=== PATIENT | female | born 1960 | race Caucasian/White ===

== ENCOUNTER 2023-07-15 23:59 | Emergency (ER) | payer OTHER, SELFPAY ==
--- NOTE | ~2023-07-15 | XR_ITS ---
EXAMINATION: XR CHEST CLINICAL INFORMATION: Shortness of breath COMPARISON: None available. TECHNIQUE: 2 views of the chest were obtained. FINDINGS: The lungs are clear with no focal consolidation. No evidence of pneumothorax, pulmonary edema, or pleural effusions. The cardiomediastinal silhouette is unremarkable. No acute osseous findings. XR/XR chest 2V IMPRESSION: No acute cardiopulmonary findings.
--- NOTE | ~2023-07-15 | US_ITS ---
EXAMINATION: US VENOUS ULTRASOUND WITH DOPPLER LOWER EXTREMITY, BILATERAL CLINICAL INFORMATION: Lumbar extremity swelling COMPARISON: None available. TECHNIQUE: Ultrasound of the deep veins is performed from the hip to the calf with compression sonography and color and pulse Doppler assessment. Spectral analysis with color-flow imaging is performed. FINDINGS: RIGHT: There is normal venous compression and respiratory variation and augmented flow. The visualized common femoral vein, superficial femoral vein, profunda femoral vein, popliteal vein, and the trifurcation region shows no evidence of deep venous thrombosis. Subcutaneous edema noted in the calf. There is no significant popliteal fossa cyst. LEFT: There is normal venous compression and respiratory variation and augmented flow. The visualized common femoral vein, superficial femoral vein, profunda femoral vein, popliteal vein, and the trifurcation region shows no evidence of deep venous thrombosis. Thrombosis noted within a varicosity off the greater saphenous vein in the thigh. Subcutaneous edema noted in the calf. There is no significant popliteal fossa cyst. If the patient's symptoms persist, followup ultrasound in 5 days 7 days might be of value to exclude proximal propagation from a non-visualized calf vein. US/US venous duplex LE BI IMPRESSION: 1. No DVT demonstrated in the bilateral lower extremities. 2. Thrombosis of a varicosity off the left greater saphenous vein in the thigh, consistent with superficial thrombophlebitis. 3. Subcutaneous edema in the bilateral calves.
[2023-07-16 00:13] VITALS: BP 136/86; BP 139/64; PULSE 107; PULSE 115; RESP 18; TEMP 36.8; O2SAT 98; O2SAT 99; BMI 27.5
--- NOTE | 2023-07-16 00:19 | ECG_ITS ---
Test Reason : SWELLING Blood Pressure : / mmHG Vent. Rate : 101 BPM Atrial Rate : 101 BPM P-R Int : 172 ms QRS Dur : 080 ms QT Int : 362 ms P-R-T Axes : 055 076 032 degrees QTc Int : 469 ms Sinus tachycardia Otherwise normal ECG No previous ECGs available Referred By: Nesha Tolliver Electronically Signed By:BRIONNA GRANDE
--- NOTE | 2023-07-16 00:20 | ED.GENADULT ---
HPI - General Adult General Chief complaint: General Medical Stated complaint: SOB/SIDE PAIN EARLIER,RESOLVED NOW PER EMS Time Seen by Provider: 07/16/23 00:15 Source: patient and EMS Mode of arrival: EMS Limitations: no limitations History of Present Illness HPI narrative: 63 yo female with no known medical history here with complaints of bilateral LE swelling x 1 yr. Went to [facility] one week ago and had labs, CXR and ultrasound in the ER per patient. Was discharged on a cephalexin, furosemide x 7 days but no patient concerned that legs are still swollen and the right leg is weeping. No fevers, chills, shortness of breath, cough, dizziness or palpitations. Patient reports earlier today she had bilateral rib pain but this is now resolved and she denies any pain at this time. No abdominal pain, vomiting, diarrhea. No recent travel, no sick contact, no recent surgeries. No history of PE/DVT Related Data Allergies Allergy/AdvReac Type Severity Reaction Status Date / Time Unable to Assess Allergy Verified 07/16/23 00:19 Review of Systems Review of Systems: Yes all other systems are reviewed and are negative Constitutional: Constitutional: Reports no additional constitutional complaints, Denies body ache(s), Denies chills, Denies fever(s), Denies headache(s) and Denies weakness Eyes: Eyes: Reports no additional eye complaints and Denies change in vision ENT: Reports system reviewed and no additional complaints, except as documented, Denies dizziness, Denies headache(s), Denies nasal congestion, Denies nasal discharge and Denies neck pain Cardiovascular: Cardiovascular: Reports no additional cardiovascular complaints, Reports chest pain, Reports leg edema and Reports dyspnea Respiratory: Respiratory: Reports no additional respiratory complaints, Denies cough and Reports dyspnea Gastrointestinal: Gastrointestinal: Reports no additional gastrointestinal complaints, Denies abdominal pain, Denies diarrhea, Denies nausea and Denies vomiting Genitourinary: Genitourinary: Reports no additional female genitourinary complaints and Denies urinary incontinence Musculoskeletal: Musculoskeletal: Reports no additional musculoskeletal complaints, Denies back pain, Denies arthralgias, Denies joint swelling, Denies neck pain, Denies numbness and Denies tingling Integumentary/Breasts: Skin/Breast: Reports system reviewed and no additional complaints, except as docu and Denies rash Neurologic: Reports system reviewed and no additional complaints, except as documented, Denies dizziness, Denies headache(s), Denies numbness, Denies tingling and Denies weakness PMFSH Past Medical History Attestation statement: The following information was validated with the patient. Source: old records reviewed and nursing notes reviewed Social History Social History Alcohol intake: never Smoked in Last 30 Days: No Use of substances other than those prescribed or required for medical reasons: No Advance Directives: No Advance Directives Information Provided: Yes Patient : No Physical Exam ED Vital Signs: Vital Signs - 24 hr 07/16/23 00:13 Temperature 98.2 F Pulse Rate 107 H Respiratory Rate 18 Blood Pressure 139/64 Pulse Oximetry 99 Oxygen Delivery Method Room Air BMI result Body Mass Index 27.5 Const General: cooperative, healthy appearing, comfortable and no acute distress Orientation/consciousness: patient oriented x3 Limitations: no limitations HENMT Head: Yes normal to inspection Ears: hearing grossly normal bilaterally Eyes General: appearance normal, both eyes and all related structures Pupils: Equal, round and reactive pupils present Neck Neck: Yes normal visual inspection and Yes full ROM Chest Chest palpation & inspection: normal inspection of the chest Resp Effort & Inspection: normal respiratory effort Auscultation: clear to auscultation bilaterally Cardio Rate: regular rate Rhythm: regular rhythm Peripheral pulses: Peripheral pulses 2+ throughout GI Inspection: Yes normal to inspection Palpation (GI): Soft to palpation and nontender Auscultation: normal bowel sounds General: Yes no CVA tenderness Back/Spine/Pelvis Back: no CVA tenderness Thoracic/Lumbar Spine: thoracic and lumbar spine normal to inspection Skin General skin exam: no rashes or lesions noted Neuro General: patient oriented x3 and moves all extremities Cranial nerves: Yes Equal, round and reactive pupils present Cognition (Neuro): normal cognition Gait exam (Neuro): Normal gait present Extrem Other: Bilateral lower extremity swelling R>L. There is scaling to both extremities Palpable 2+ DP/PT pulses Normal distal sensation Mild TTP No warmth/redness +weeping from scaling on right lower extremity Course Course Course Narrative: 199-Sign out to Dr Simon pending labs and dispo. Medical Decision Making Medical Decision Making MDM Narrative: 63 yo female with no known medical history here with complaints of bilateral LE swelling x 1 yr. Went to [facility] one week ago and had labs, CXR and ultrasound in the ER per patient. Was discharged on a cephalexin, furosemide x 7 days but no patient concerned that legs are still swollen and the right leg is weeping. No fevers, chills, shortness of breath, cough, dizziness or palpitations. Patient reports earlier today she had bilateral rib pain but this is now resolved but denies pain at this time. No abdominal pain, vomiting, diarrhea. No recent travel, no sick contact, no recent surgeries. No history of PE/DVT On exam patient has bilateral lower extremity swelling R>L with scaling to both LE and weeping from RLE. There is mild tenderness but no appreciable warmth or redness. LS CTA Will attempt to obtain [facility] records although getting them in a reasonable time frame may not happen as it is Sunday evening Will obtain labs, CXR, venous US Differential Diagnosis Differential Diagnoses: The differential diagnosis associated with the presentation includes DVT, CHF, lymphedema PE-less likely as patient denies shortness of breath, cough, chest pain with no hypoxia or tachypnea, no risk factors for PE although consider US study in MDM low concern for cellulitis, nec fascitis, compartment syndrome Admission/Observation Consideration of admission/observation: Escalation of care including admission/observation considered see discussion in course of care Lab Data MDM Lab Attestation statement: I reviewed the patient's lab results. Independent Interpretation I performed an independent interpretation of an: EKG, Plain X-Ray and Ultrasound Interpretation: I independently reviewed the EKG which shows sinus tachycardia with a rate of 101, normal NV, normal QRS, normal QT I independently reviewed the CXR and agree with rad report Radiology Impression Discussion of test interpretation with radiology: I have reviewed the radiologist's reading. Radiologist Impression: [address] [address] XRay Report Signed Patient: Brigida Yao MR#: [id number] : 1960 Acct:[id number] Age/Sex: 63 / F ADM Date: 07/16/23 Loc: .ED Attending Dr: Ordering Physician: Nesha Jennings NP Date of Service: 07/16/23 Procedure(s): XR chest 2V Accession Number(s): [id number] cc: Dick,Nesha [employer]~ EXAMINATION: XR CHEST CLINICAL INFORMATION: Shortness of breath COMPARISON: None available. TECHNIQUE: 2 views of the chest were obtained. FINDINGS: The lungs are clear with no focal consolidation. No evidence of pneumothorax, pulmonary edema, or pleural effusions. The cardiomediastinal silhouette is unremarkable. No acute osseous findings. XR/XR chest 2V IMPRESSION: No acute cardiopulmonary findings. ? Independent Historian Clinical information obtained from an independent historian. History obtained from or confirmed by: EMS Discharge Plan Discharge Clinical Impression: Leg swelling Patient Disposition: Home, Self-Care Instructions: Leg Edema (ED) Additional Instructions: Elevate your leg Buy compression stocking and please use these Follow-up with her primary care doctor Return for shortness of breath, chest pain, fevers, chills, vomiting, diarrhea
--- NOTE | 2023-07-16 01:10 | PC.NURSE ---
Blood work and EKG delayed due to pt being with radiology.
[2023-07-16 01:55] LABS: MANUAL DIFF FLAG NO
[2023-07-16 01:58] LABS: Basophils Percent Auto 0.3 % (0-2); Eosinophils Percent Auto 0.1 % (0-4); Hematocrit 35.8 % (37.0-47.0); Hemoglobin 10.8 g/dl (12.0-16.0); Imm Gran Abs Auto 0.07 X10*3/uL (0.00-0.03); Imm Gran Pct Auto 0.6 % (0.0-0.4); Lymphocytes Absolute Auto 0.6 X10*3/uL (1.2-4.9); Lymphocytes Percent Auto 5.5 % (20-40); Mean Corpuscular HGB Conc 30.2 g/dl (31.0-35.0); Mean Corpuscular Hemoglobin 24.4 pg (27.0-33.0); Mean Corpuscular Volume 80.8 fL (80.0-98.0); Mean Platelet Volume 9.7 fL (9.4-12.3); Monocytes Absolute Auto 0.6 X10*3/uL (0.1-1.2); Monocytes Percent Auto 5.2 % (2-11); Neutrophils Absolute Auto 10.1 x10*3/uL (2.0-8.3); Neutrophils Percent Auto 88.3 % (45-73); Platelet Count 362 X10*3/uL (160-400); Red Blood Count 4.43 X10*6/uL (4.20-5.50); Red Cell Distribution Width 15.1 % (11.0-16.0); White Blood Count 11.4 X10*3/uL (4.8-10.8)
[2023-07-16 02:16] LABS: Alanine Aminotransferase 56 U/L (0-31); Albumin Level 2.8 g/dL (3.5-5.0); Alkaline Phosphatase 419 U/L (39-117); Anion Gap 14 (12-20); Aspartate Amino Transferase 303 U/L (5-31); Bilirubin Direct 0.7 mg/dL (0.0-0.5); Blood Urea Nitrogen 14 mg/dL (9-16); Calcium 9.1 mg/dL (8.4-10.2); Carbon Dioxide 31 mmol/L (22-29); Chloride 93 mmol/L (96-108); Creatinine Clr Calc Pharmacy 81.9; Estimated Glomerular Filt Rate > 60; Glucose Random 159 mg/dL (60-115); Magnesium 2.1 mg/dL (1.6-2.6); Potassium 3.7 mmol/L (3.3-5.1); Sodium 134 mmol/L (135-145); Total Protein 8.2 g/dL (6.5-8.0)
[2023-07-16 02:17] LABS: INTERNATIONAL NORM RATIO 1.2 (0.9-1.1); Prothrombin Time 14.5 SEC (11.1-13.3)
[2023-07-16 02:19] LABS: B Type Natriuretic Peptide 15 pg/mL (<100)
[2023-07-16 02:26] LABS: Troponin-I High Sensitivity < 2.7 ng/L (<3.5-17.0)
[2023-07-16] MEDS: Apixaban 5 MG TABLET 10 MG PO (03:18)
== END 2023-07-16 03:28 | disposition home or self-care (01) ==
PROVIDERS: Nurse Practitioner Family; Emergency Provider Emergency Medicine; PCP Physician Assistant
DX: R06.02 Shortness of breath (principal); R60.0 Localized edema; R00.0 Tachycardia, unspecified; Z79.899 Other long term (current) drug therapy
CPT/HCPCS: 36415; 71046; 80048; 80076; 83605; 83735; 83880; 84484; 85025; 85610; 87040; 93005; 93970; 99284

== ENCOUNTER 2023-07-19 09:08 | Outpatient (AMB) | payer OTHER, SELFPAY ==
--- NOTE | 2023-07-19 09:29 | MHC.OFFVIS ---
Intake Vital Signs 07/19/23 09:30 Height 5 ft 5 in Weight 165 lb BMI 27.5 Intake Visit Reasons: ED ref for LE swelling s/p ultrasound Intake Note: ED referral for LE swelling, s/p Venous US bilateral LE 07/16/23 that showed thrombosis of Left GSV. Had gone to [facility] the week begore and was given Abx & Lasix for LE swelling and redness in LE. Has bilateral LE swelling and lymphorrea and discoloration and hyperkaratosis Accompanied by: Spouse Allergies Unable to Assess Allergy (Verified 07/19/23 09:49) HPI ED ref for LE swelling s/p ultrasound HPI Details very complex 63-year-old female presents for evaluation for swelling and nonhealing ulcers of bilateral lower extremities. This has been progressing for significant period of time she actually presented to the emergency room on 07/16/2023. At that time there was concern left great saphenous vein superficial thrombophlebitis. She was treated at that time with Eliquis and cephalexin. Her leg appears to be doing somewhat better but she has significant edema concerning for lymphedema. She has dry excoriated lower extremities which have been weeping. She tends to have so much drainage that she is in a chair all day. She falls asleep sitting on a couch. She now presents for vascular evaluation. Also of note she reports she is a nonsmoker nondiabetic. That being said she has not seen a primary care physician in over 15 years. [facility] Social History (Updated 07/19/23 @ 09:52 by ERICK Gomez) Alcohol intake: never Patient Tobacco Use Status: Never used Tobacco Review of Systems Const Reports as per HPI ENT Reports no additional complaints Card Denies chest pain, Denies chest pain at rest and Denies chest pain with activity Resp Denies chest congestion and Denies cough GI Reports no additional complaints Musc Details: pain over varicosities, aching of lower extremities, swelling, cramping, heaviness and tiredness, itching Denies abnormal gait Skin/Breast Reports pruritus and Denies wounds Neuro Reports no additional complaints and Denies abnormal gait Psych Denies no additional complaints Physical Exam Vital Signs: BMI result Body Mass Index 27.5 Const General: cooperative, healthy appearing and comfortable Orientation/consciousness: oriented to person, oriented to place and oriented to time Neck Carotids: no bruits Chest Chest palpation & inspection: normal inspection of the chest and normal palpation of entire chest wall Resp Effort & Inspection: normal respiratory effort and able to speak in complete sentences Cardio Rate: regular rate Heart sounds: S1 normal heart sound present and S2 normal heart sound present Peripheral pulses: Peripheral pulses 2+ throughout GI Inspection: Yes normal to inspection Skin Other: +3 edema, significantly excoriated dry skin open ulcerations serous drainage. CEAP Classification C6 - Open ulceration Ep - Etiology Primary As - superficial veins P - reflux General skin exam: dry skin Neuro General: oriented to person, oriented to place and oriented to time Extrem Right lower extremity: full ROM, normal capillary refill and edema Left lower extremity: full ROM, normal capillary refill and edema Psych Mental Status: mental status grossly normal Assessment & Plan Assessment & Plan (1) Varicose veins of right lower extremity with inflammation: Code(s): I83.11 - Varicose veins of right lower extremity with inflammation Plan: in short patient has significantly swollen lower extremities with nonhealing ulcerations. We did discuss routine wound care measures including moisturization. In addition to Vick wraps of the calf and ankle area. We also did discuss conservative measures including compression elevation and exercise. I did discuss the importance of sleeping in a horizontal position. And trying to cover up the self us so that there is a place for her to sleep. I have taken the liberty of ordering venous insufficiency testing to rule that out. In addition I did stress the importance of primary care evaluation of basic diabetes and heart condition. She was scheduled for August but we personally call than expedited an appointment for tomorrow. She is scheduled with [facility] for tomorrow. Once again she will follow up with us after venous insufficiency testing. She will finish her 30 day supply of Eliquis. She does not need additional anticoagulation. (2) Lymphedema: Code(s): I89.0 - Lymphedema, not elsewhere classified Plan: In addition to her venous insufficiency I do believe she has a significant element of lymphedema. We will workup venous disease 1st. At the current time I did recommend daily Vick wraps and moisturizing lower extremities twice daily. We will try to expedite venous insufficiency testing as soon as possible. She will follow up with us after testing. I also do hope that she does follow-up with primary care as well. Thank you for allowing us to assist in her care. If there are any questions or concerns please do not hesitate to contact us. Coding Level of Care Code New Pt Level 4 (98169) Diagnoses Varicose veins of right lower extremity with inflammation I83.11 Lymphedema I89.0
[2023-07-19 09:30] VITALS: BMI 27.5
== END 2023-07-19 10:21 | disposition home or self-care (01) ==
PROVIDERS: PCP Physician Assistant; Visit Provider Surgery Vascular Surgery
DX: I83.11 Varicose veins of right lower extremity with inflammation (principal); I89.0 Lymphedema, not elsewhere classified
CPT/HCPCS: 99204

== ENCOUNTER → 2023-07-19 09:08 | Outpatient (BNVA) | payer OTHER, SELFPAY | PROVIDERS: PCP Physician Assistant; Visit Provider Surgery Vascular Surgery ==

== ENCOUNTER 2023-07-20 14:32 | Outpatient (AMB) | payer OTHER, SELFPAY ==
--- NOTE | 2023-07-20 14:33 | A.OFFPC_ITS ---
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 Last PCP about 15 years ago. Medical history significant for varicose veins of right lower extremity with inflammation and lymphedema-followed by Dr. Corea- patient reports she will be having bilateral lower extremity ultrasounds. Patient was seen in the [facility] recently 06/2023 and she had blood work done which shows low hemoglobin and elevated LFTs. She denies any bleeding. Denies Tylenol or alcohol consumption. Patient also reports she has right leg ulcer, will be doing dressing changes daily. Today we discussed patient's need for colon cancer screening, patient declined colonoscopy, she is interested in Cologuard. Also discussed patient's need for mammogram and cervical cancer screening as well as eye exam. Patient is also due for tetanus vaccine. 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 Patient denies shortness of breath or chest pain. Up-to-date with dental exam. [facility] Medical History Varicose vein of leg Family History Mother Dementia Father Lung cancer Social History Alcohol intake: never Patient Tobacco Use Status: Never used Tobacco service: No Current occupational status: employed Cognitive needs: No Hearing needs: No Vision needs: No Questionnaire PHQ-9 Over the last 2 weeks, how often have you been bothered by any of the following problems? 1. Little interest or pleasure in doing things: not at all 2. Feeling down, depressed, or hopeless: not at all 3. Trouble falling or staying asleep, or sleeping too much: not at all 4. Feeling tired or having little energy: not at all 5. Poor appetite or overeating: not at all 6. Feeling bad about yourself - or that you are a failure or have let yourself or your family down: not at all 7. Trouble concentrating on things, such as reading the newspaper or watching television: not at all 8. Moving or speaking so slowly that other people could have noticed. Or the opposite - being so fidgety or restless that you have been moving around a lot more than usual: not at all 9. Thoughts that you would be better off or of hurting yourself in some way: not at all Total score: 0 Depression Screening Interpretation: Negative 50843 - PHQ-9 Billing: Yes Source: Developed by Drs. Jona Del Valle, Macie Frias, Christopher Harper and colleagues, with an educational phuong from [employer]. Thrive Questionnaire Date Thrive assessed: 07/20/23 I am a: Patient What is your living situation today?: I have a steady place to live Within the past 12 months, did the food you bought not last and you didn't have the money to get more?: Never true Within the past 12 months, did you worry whether your food would run out before you got money to buy more?: Never true Do you have trouble paying for medicines?: No Do you have trouble getting transportation to medical appointments?: No Do you have trouble paying your heating and electricity bill?: No Do you have trouble taking care of your child, family member or friend?: No Do you have trouble with day-to-day activities such as bathing, preparing meals, shopping, managing finances, etc.?: No Are you currently unemployed and looking for a job?: No Are you interested in more education?: No Currently or been in a relationship where the following occur: no concerns reported AUDIT C Alcohol Use Questionnaire (AUDIT-C) 1. How often do you have a drink containing alcohol?: Never 3. How often do you have six or more drinks on one occasion?: Never Total Score: 0 Score Reviewed/Action Taken: No YIFAN-7 AMB Questionnaire YIFAN-7 Date YIFAN - 7 assessed: 07/20/23 Feeling nervous, anxious, or on edge: 0 = Not at all Not being able to stop or control worryin = Not at all Worrying too much about different things: 0 = Not at all Trouble relaxin = Not at all Being so restless that it is hard to sit still: 0 = Not at all Becoming easily annoyed or irritable: 0 = Not at all Feeling afraid as if something awful might happen: 0 = Not at all Total YIFAN-7 score (0-4 normal; 5-9 mild; 10-14 moderate; 15-21 severe): 0 Source: Developed by Drs. Jona Del Valle, Macie Frias, Christopher Harper and colleagues, with an educational phuong from [employer]. YIFAN-7 Assessment Billing YIFAN-7 Assessment Tool: YIFAN-7 Assessment 43687 Review of Systems Const Denies body aches, Denies chills, Denies fever(s) and Denies headache(s) Eyes Denies change in vision ENT Denies dizziness, Denies otalgia, Denies headache(s), Denies nasal discharge, Denies sinus pain and Denies sore throat Card Denies chest pain, Denies edema, Reports leg edema, Denies lightheadedness and Denies dyspnea Resp Denies cough, Denies dyspnea and Denies wheezing GI Denies abdominal pain, Denies constipation, Denies diarrhea, Denies nausea and Denies vomiting Denies dysuria Musc Denies myalgias Skin/Breast Reports as per HPI and Denies rash Neuro Denies dizziness and Denies headache(s) Aller/Immun Denies wheezing Physical exam (Primary Care) Vital Signs: Last Vital Signs Pulse 110 H 07/20/23 15:22 BP 142/80 H 07/20/23 14:35 Pulse Ox 96 07/20/23 14:35 Oxygen Delivery Method Room Air 07/20/23 14:35 BMI result Body Mass Index 30.6 Tobacco/Smoking Status: Tobacco use Status Tobacco use date assessed 07/20/23 07/20/23 14:37 Patient Tobacco Use Status Never used Tobacco 07/20/23 14:35 PHQ-9: PHQ-9 Score PHQ-9: Total score 0 07/20/23 15:24 Depression Screening Interpretation: Negative Thrive Assessment: Date of Thrive Assessment Date Thrive assessed 07/20/23 07/20/23 14:37 Currently or been in a relationship where the following occur: no concerns reported Const General: cooperative and no acute distress Orientation/consciousness: patient oriented x3 HENMT Head: Yes normocephalic and Yes atraumatic Ears: TM's normal bilaterally Face and sinus: Yes sinuses nontender Mouth: oropharynx normal and moist mucous membranes Throat: Yes posterior oropharynx normal Eyes General: appearance normal, both eyes and all related structures Pupils: Equal, round and reactive pupils present EOM: EOMs intact bilaterally Neck Neck: Yes normal visual inspection, Yes full ROM and Yes no lymphadenopathy Thyroid: Thyroid normal Resp Effort & Inspection: normal respiratory effort and able to speak in complete sentences Auscultation: clear to auscultation bilaterally, no crackles, no rales, no rhonchi and no wheezes Cardio Rate: regular rate Rhythm: regular rhythm Heart sounds: S1 normal heart sound present, S2 normal heart sound present and no murmurs GI Palpation (GI): Soft to palpation, not firm, nontender, no guarding, not rigid and no hepatosplenomegaly Auscultation: normal bowel sounds General: No CVA tenderness Back/Spine/Pelvis Back: No CVA tenderness Skin Other: Right distal posterior leg with open ulcer and serous discharge, patient has dressing and Vick wrap Bilateral toenails brown and thick Bilateral lower extremities distal aspect with very dry skin - reports he will be applying moisturizing cream Neuro General: patient oriented x3 Cranial nerves: Yes Equal, round and reactive pupils present Gait exam (Neuro): Normal gait present Extrem Other: Bilateral lower extremity edema +2 nonpitting R>L General: Yes full ROM Immunizations Boostrix Tdap Performing Provider: THIERNO Gamez Administered by: ERICK Johnson on 07/20/23 15:24 Dose Route Admin Location Lot Number Expiration Date 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 0.5 mL IM Left Deltoid [id number] 10/24/25 [id number] [employer] VIS Given Date VIS Provided VIS Publication Date 07/20/23 Single Vaccine 21 Eligibility Eligibility Date Funding Source Not [facility] Eligible 07/20/23 Private Assessment and Plan Assessment & Plan (1) Skin ulcer of right lower leg: Code(s): L97.919 - Non-pressure chronic ulcer of unspecified part of right lower leg with unspecified severity Plan: Urgent referral to wound care (2) Toenail fungus: Code(s): B35.1 - Tinea unguium Plan: Podiatry referral for an evaluation and treatment (3) Tachycardia: Code(s): R00.0 - Tachycardia, unspecified Plan: Heart rate elevated at 110 Patient denies shortness of breath or chest pain Will order echocardiogram - also patient with bilateral lower extremity edema - has lymphedema and followed by Dr. Corea (4) Eye exam, routine: Code(s): Z01.00 - Encounter for examination of eyes and vision without abnormal findings (5) Screening for breast cancer: Code(s): Z12.39 - Encounter for other screening for malignant neoplasm of breast (6) Cervical cancer screening: Code(s): Z12.4 - Encounter for screening for malignant neoplasm of cervix (7) Low hemoglobin: Code(s): D64.9 - Anemia, unspecified Plan: Hemoglobin 10.8 06/2023 Will check iron level (8) Elevated glucose: Code(s): R73.09 - Other abnormal glucose Plan: Random glucose 159 06/2023 Will check A1c (9) Elevated LFTs: Code(s): R79.89 - Other specified abnormal findings of blood chemistry Plan: AST 303, ALT 56, alk-phos 419 06/2023 Hepatitis panel and abdominal ultrasound ordered Patient denies Tylenol or alcohol consumption (10) Encounter to establish care: Code(s): Z76.89 - Persons encountering health services in other specified circumstances Plan: Patient presents to establish care Blood work ordered (11) Lymphedema: Code(s): I89.0 - Lymphedema, not elsewhere classified Plan: Continue to follow-up with Dr. Corea (12) Screening for colon cancer: Code(s): Z12.11 - Encounter for screening for malignant neoplasm of colon Plan Follow-up in 2 months or sooner as needed Orders: Orders Vitamin B12 and Folate Today Z76.89 - Persons encountering health services in other specified circumstances Hemoglobin A1c Today R73.09 - Other abnormal glucose Lipid Panel Today Z76.89 - Persons encountering health services in other specified circumstances TSH reflex Free T4 Today Z76. - Persons encountering health services in other specified circumstances Vitamin D 25-OH Total Today Z76. - Persons encountering health services in other specified circumstances Hepatitis A,B,C Profile Today R79.89 - Other specified abnormal findings of blood chemistry IRON PROFILE Today D64.9 - Anemia, unspecified US abdomen complete Today R79. - Other specified abnormal findings of blood chemistry MM tomosynthesis screening BI Today Z12.31 - Encounter for screening mammogram for malignant neoplasm of breast, Z12.39 - Encounter for other screening for malignant neoplasm of breast CA echo transthoracic complete Today R00.0 - Tachycardia, unspecified TDaP Immunization Today Z23 - Encounter for immunization Referrals Cologuard Test Z12.11 - Encounter for screening for malignant neoplasm of colon, Z12.12 - Encounter for screening for malignant neoplasm of rectum AUT[employer]TER Referral Z12.4 - Encounter for screening for malignant neoplasm of cervix Ophthalmology Referral Z01.00 - Encounter for examination of eyes and vision without abnormal findings Podiatry Referral B35.1 - Tinea unguium Wound Care Referral L97.919 - Non-pressure chronic ulcer of unspecified part of right lower leg with unspecified severity Coding Level of Care Code New Pt Level 4 (80234) Diagnoses Skin ulcer of right lower leg L97.919 Toenail fungus B35.1 Tachycardia R00.0 Eye exam, routine Z01.00 Screening for breast cancer Z12.39 Cervical cancer screening Z12.4 Low hemoglobin D64.9 Elevated glucose R73.09 Elevated LFTs R79.89 Encounter to establish care Z76. Lymphedema I89.0 Screening for colon cancer Z12.11 Additional Codes YIFAN-7 Assessment Billing - YIFAN-7 Assessment Tool: YIFAN-7 Assessment 10068 ([id number])
[2023-07-20 14:35] VITALS: BP 142/80; PULSE 112; O2SAT 96; BMI 30.6
[2023-07-20 15:22] VITALS: PULSE 110
== END 2023-07-20 15:46 | disposition home or self-care (01) ==
PROVIDERS: PCP Physician Assistant; Visit Provider Nurse Practitioner Family
DX: Z23 Encounter for immunization (principal)
CPT/HCPCS: 90471; 90715; 99204

== ENCOUNTER 2023-08-09 09:55 | Outpatient (REF) | payer OTHER, SELFPAY ==
--- NOTE | ~2023-08-09 | US_ITS ---
EXAMINATION: US VENOUS BILATERAL LOWER EXTREMITIES (REFLUX EXAM) CLINICAL INDICATION: Leg pain and varicose veins. COMPARISON: None available. TECHNIQUE: Color flow triplex imaging and compression Doppler was performed to evaluate both the deep and the superficial systems bilaterally. To evaluate the superficial system, the examination was performed in the upright position. Color-flow Doppler ultrasound and compression ultrasound were utilized. In addition, maneuvers were utilized to demonstrate reflux. FINDINGS: 1. DEEP VENOUS ULTRASOUND OF THE RIGHT LOWER EXTREMITY: Respiratory variation, normal compression and augmented flow are noted in the right common femoral vein as well as the right popliteal vein and there is no evidence of deep venous thrombosis at these locations. There is no evidence of reflux in the deep system in either the common femoral vein or the popliteal vein. There is no evidence of a Beltran's cyst. 2. SUPERFICIAL ULTRASOUND WITH DOPPLER OF RIGHT LOWER EXTREMITY: The right great saphenous vein at the saphenofemoral junction measures 6 mm, at the proximal thigh 6 mm, at the mid thigh 5 mm, above the knee 3 mm, at the knee 2 mm, [id number] 3 mm, midcalf 3 mm and at the ankle not seen. There is 0.9 seconds of reflux present at the saphenofemoral junction. Duplicated Right Great Saphenous Vein: There is an 8mm lateral accessory saphenous that demonstrates reflux throughout its course with reflux times as high as 1.1 seconds. The right small saphenous vein measures 2 mm and shows no reflux. Accessory Vein of Giacomini: None. Incompetent Perforators: None. Varices Present: Yes as large as 7 mm with reflux. 3. DEEP VENOUS ULTRASOUND OF THE LEFT LOWER EXTREMITY: Respiratory variation, normal compression and augmented flow are noted in the left common femoral vein as well as the left popliteal vein and there is no evidence of deep venous thrombosis at these locations. There is no evidence of reflux in the deep system in either the common femoral vein or the popliteal vein. There is no evidence of a Beltran's cyst. 4. SUPERFICIAL ULTRASOUND WITH DOPPLER OF LEFT LOWER EXTREMITY: Left great saphenous vein at the saphenofemoral junction measures 9 mm, at the proximal thigh 5 mm, at the mid thigh 4 mm, above the knee 6 mm, at the knee 6 mm, cukgg-fol-ttay 8 mm, midcalf 5 mm and at the ankle measures 4 mm. Gross reflux is present throughout the left great saphenous vein with reflux times as high as 1.8 seconds. Duplicated Left Great Saphenous Vein: None. The left small saphenous vein measures 5 mm and 0.8 seconds of reflux from the junction downward. Accessory Vein of Giacomini: None. Incompetent Perforators: None. Varices Present: Multiple varices in the thigh and proximal calf up to 7 mm in size with 2.1 seconds of reflux. US/US venous duplex LE BI IMPRESSION: No evidence of deep venous reflux or thrombus in the common femoral veins or popliteal veins bilaterally. Both great saphenous veins as well as the left small saphenous vein are incompetent as described above.
== END 2023-08-09 09:56 | disposition home or self-care (01) ==
LOC: HO.US 09:55
PROVIDERS: PCP Nurse Practitioner Family; Visit Provider Surgery Vascular Surgery
DX: I83.11 Varicose veins of right lower extremity with inflammation (principal); I83.812 Varicose veins of left lower extremity with pain
CPT/HCPCS: 93970

== ENCOUNTER 2023-08-13 10:06 | Outpatient (REF) | payer OTHER, SELFPAY ==
--- NOTE | ~2023-08-13 | US_ITS ---
EXAMINATION: US ABDOMEN COMPLETE CLINICAL INFORMATION: Other specified abnormal findings of blood chemistry. Elevated LFTs. COMPARISON: None available. TECHNIQUE: Real-time imaging of the abdominal viscera. FINDINGS: PANCREAS: Normal. ABDOMINAL AORTA: The proximal, mid, and distal segments are normal in caliber. INFERIOR VENA CAVA: Visualized portions are normal. LIVER: The liver is normal in size. The liver contour is normal. 3.6 x 2.9 x 2.0 cm hyperechoic focus is identified in the right hepatic lobe. There is no intrahepatic biliary duct dilatation seen. GALLBLADDER: Layering sludge.. No evidence of stones, polyps, wall thickening or pericholecystic fluid. COMMON BILE DUCT: Normal in caliber measuring 0.7 cm in diameter. RIGHT KIDNEY: Normal. No hydronephrosis. No renal calculi or focal parenchymal lesions. The kidney measures 13.2 cm in maximum dimension. LEFT KIDNEY: Normal. No hydronephrosis. No renal calculi or focal parenchymal lesions. The kidney measures 12.4 cm in maximum dimension. SPLEEN: Spleen is enlarged at 14.5 cm. Prominent perisplenic vessels. FREE FLUID: None. US/US abdomen complete IMPRESSION: 3.6 cm right hepatic hyperechoic focus, question hemangioma versus focal fatty deposition. Gallbladder sludge and borderline common bile duct. Splenomegaly. Question perisplenic varices.
== END 2023-08-13 10:07 | disposition home or self-care (01) ==
LOC: HO.HMGCX 10:06
PROVIDERS: PCP Nurse Practitioner Family; Visit Provider Nurse Practitioner Family
DX: R79.89 Other specified abnormal findings of blood chemistry (principal)
CPT/HCPCS: 76700

== ENCOUNTER → 2023-08-20 14:24 | Outpatient (REF) | payer OTHER, SELFPAY ==
--- NOTE | 2023-08-20 14:27 | CA_ITS ---
Transthoracic Echocardiogram Patient (Last, First, Middle): Brigida Yao, Gender: Female Date of : 1960 Age: 63 Procedure Date: 08/20/2023 Procedure Type: Transthoracic Echocardiogram Location: OP Height: 165.1 cm Weight: 81.65 kg BSA: 1.89 m2 Heart Rate: bpm BP: 126 / 80 mmHg Freight Tallier: JESUS/HEATH Referring MD: Kelle PA Symptoms: R00.0 - Tachycardia, unspecified Study Quality: Fair ECG Rhythm: Sinus Conclusions: - The left ventricular systolic function is normal. The calculated ejection fraction is 60% by biplane method. - The basal inferior and basal inferolateral segments are hypokinetic. - No obvious valvular pathology seen on this study. Findings Left Ventricle Normal left ventricular cavity size. There is mildly increased left ventricular wall thickness. The left ventricular systolic function is normal. The calculated ejection fraction is 60% by biplane method. There is no evidence of regional wall motion abnormalities. Evidence suggests grade I (mild) diastolic dysfunction. Wall Motion Rest Echo Findings The basal inferior and basal inferolateral segments are hypokinetic. Right Ventricle Normal right ventricular cavity size and systolic function. Atria Both atria are normal in size. Aortic Valve There is a normal trileaflet aortic valve. There is no aortic valve stenosis. There is no aortic valve regurgitation. Mitral Valve The mitral valve appears normal. There is no mitral valve regurgitation. There is no mitral valve stenosis. Pulmonic Valve The pulmonic valve is likely normal. Tricuspid Valve There is trace tricuspid valve regurgitation. There is no evidence of pulmonary hypertension. Great Vessels The asc aorta is normal in size. Venous The inferior vena cava is normal in size and collapses greater than 50% with inspiration. Pericardium/Pleural There is no evidence of pericardial effusion. Prior Study Comparison No prior study available for comparison. Recommendations, Care & Conclusions No obvious valvular pathology seen on this study. Measurements 2D Linear Measurements IVSd: 1.11 0.6-0.9/0.6-1.0 cm LVIDd: 3.93 3.9-5.3/4.2-5.9 cm LVIDd Index: 2.08 2.4-3.2/2.2-3.1 cm/m2 LVIDs: 2.73 2.0-3.6 cm LVPWd: 1.10 0.7-1.1 cm Ao Root: 3.40 2.1-3.5 cm LA Diam: 3.40 2.7-3.8/3.0-4.0 cm LAIDs Index: 1.80 1.5-2.3 cm/m2 LV Mass: 177.61 67-162/88-224 g LV Mass Index: 93.97 43-95/49-115 g/m2 LVOT Diam: 2.40 3.0+(-)1.3 cm 2D Systolic Function EF 4C: 59.60 >55% EF 2C: 56.00 >55% EF BiP: 60.00 >55% Mitral Valve MV Pk E: 0.97 MV PK A: 1.29 MV Decel Time: 46.00 E/A: 0.80 E'Lateral: 7.51 E'Medial: 6.42 E/E' Med: 15.10 E/E' Lat: 12.90 PHT: 13.00 MVA PHT: 16.92 Decel Pershing: 21.22 Aortic Valve AoV Pk Jamari: 1.26 AoV Mn Jamari: 0.86 AoV VTI: 0.30 AoV Pk Grad: 6.00 Aov Mn Grad: 3.00 ДМИТРИЙ Cont.VTI: 3.63 LVOT LVOT Pk Jamari: 1.02 LVOT Mn Jamari: 0.67 LVOT VTI: 0.24 LVOT Pk Grad: 4.00 LVOT Mn Grad: 2.00 LVOT Diam: 2.40 LVOT Area: 4.52 Diastolic Function MV Pk E: 0.97 MV Pk A: 1.29 E/A: 0.80 E'Medial: 6.42 E/E' Med: 15.10 E' Laterial: 7.51 E/E' Lat: 12.90 Right Ventricle TAPSE (mm): 26.00 TVS' Jamari: 13.00 Tricuspid Valve TR Pk Jamari: 1.75 TR Pk Grad: 12.00 RA Press: 3.00 RVSP: 15.00 Great Vessels Aorta Ao Root-2D: 3.40 2.0-3.7 cm Ao Asc: 3.70 2.1-3.4 cm Pulmonary Valve PV Pk Jamari: 1.02 Peak PV Grad: 4.00 Updated in Other Vendor System with Status of Final Yinka Lazar MD electronically signed on 08/20/2023 4:09:37 PM with status of Final
== END ==
LOC: HO.CARD 14:24
PROVIDERS: PCP Nurse Practitioner Family; Visit Provider Nurse Practitioner Family
DX: R00.0 Tachycardia, unspecified (principal)
CPT/HCPCS: 93306

== ENCOUNTER → 2023-08-20 14:27 | Outpatient (BNV) | payer OTHER, SELFPAY | PROVIDERS: PCP Nurse Practitioner Family; Visit Provider Internal Medicine | DX: R00.0 Tachycardia, unspecified (principal); I51.9 Heart disease, unspecified | CPT/HCPCS: 93306 ==

== ENCOUNTER 2023-08-22 08:45 | Outpatient (RCR) | payer OTHER, SELFPAY | END 2023-09-26 14:39 | disposition home or self-care (01) | LOC: HO.WCC 08:45 | PROVIDERS: PCP Nurse Practitioner Family; Visit Provider Surgery | DX: I87.333 Chronic venous hypertension (idiopathic) with ulcer and inflammation of bilateral lower extremity (principal); L97.822 Non-pressure chronic ulcer of other part of left lower leg with fat layer exposed; Q82.0 Hereditary lymphedema | CPT/HCPCS: 11042; 97597; 97598; 99212; 99213 ==

== ENCOUNTER 2023-09-05 09:00 | Outpatient (REF) | payer OTHER, SELFPAY ==
[2023-09-05 10:30] LABS: Estimated Average Glucose 94 mg/dL; Hemoglobin A1c % 4.9 % (<6.0)
[2023-09-05 10:58] LABS: Cholesterol 196 mg/dL (<200); HDL Cholesterol 44 mg/dL (>40); Iron 47 mcg/dL (30-160); LDL Cholesterol Calculated 124 mg/dL (<100); Percent Iron Saturation 18 % (15-50); Total Iron Binding Capacity 264 mcg/dL (228-428); Triglycerides 144 mg/dL (<150); Unsaturated Iron Binding 217 ug/dL
[2023-09-05 11:11] LABS: HBS Num1 0.31 mIU/mL (0-7.99); HBc Num1 0.08 S/CO (0.00-0.79); Hepatitis A Antibody IgM 0.17 Index (0-0.79); Hepatitis B Core Antibody Nonreactive (Nonreactive); Hepatitis B Surface Antigen Negative (Negative); ~HepC Num1 0.11 S/CO (0.00-0.79); ~Hepatitis A Antibody IgM Nonreactive (Nonreactive); ~Hepatitis B Surface Antibody NONREACTIVE (Nonreactive); ~Hepatitis C Antibody Nonreactive (Nonreactive)
[2023-09-05 11:14] LABS: TSH reflex Free T4 1.81 uIU/mL (0.32-4.0)
[2023-09-05 11:25] LABS: Folate 2.5 ng/mL (> or = 4.0); Vitamin B12 209 pg/mL (200-900)
== END 2023-09-05 09:01 | disposition home or self-care (01) ==
LOC: HO.LAB 09:00
PROVIDERS: PCP Nurse Practitioner Family; Visit Provider Nurse Practitioner Family
DX: D64.9 Anemia, unspecified (principal); R79.89 Other specified abnormal findings of blood chemistry; R73.09 Other abnormal glucose; E55.9 Vitamin D deficiency, unspecified; Z76.89 Persons encountering health services in other specified circumstances
CPT/HCPCS: 36415; 80061; 82306; 82607; 82746; 83036; 83540; 84443; 86704; 86706; 86709; 86803; 87340

== ENCOUNTER 2023-10-09 10:52 | Outpatient (AMB) | payer OTHER, SELFPAY ==
[2023-10-09 10:54] VITALS: BP 166/90; PULSE 105; O2SAT 95; BMI 29.8
--- NOTE | 2023-10-09 10:54 | MHC.PC.OV ---
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 Required: No Allergies No Known Allergies Allergy (Verified 10/09/23 11:16) Medication List - Last Reconciled 10/09/23 by THIERNO Gamez cholecalciferol (vitamin D3) 50 mcg PO DAILY cyanocobalamin (vitamin B-12) 1,000 mcg PO DAILY folic acid 0.4 mg PO DAILY Tobacco use date assessed: 10/09/23 Dental Screening Dental Screen Date: 10/09/23 Did you have a dental visit in the last 12 months?: Yes Did you have a dental problem in the last 6 months where you did not have access to dental care?: No Was dental information given to patient?: Patient has dentist HPI F/U on elevated LFTs HPI Details Patient is a 63-year-old female who presents today for physical exam. Medical history significant for lymphedema-followed by Dr. Corea, elevated LFTs - will be seeing [facility], mild diastolic dysfunction-will be seeing Cardiology, low folate, low vitamin B12 level, low vitamin-D level. Patient has referral for a mammogram, will follow-up on this. Patient reports that she received a Cologuard and she will to this test. Has upcoming gynecology appointment next year. Will follow-up on ophthalmology referral. Patient will be seeing Podiatry next week. No shortness of breath or chest pain. Patient is accompanied by her sister. [facility] Medical History (Updated 10/09/23 @ 12:52 by THIERNO Gamez) Encounter to establish care Varicose vein of leg Family History Mother Dementia Father Lung cancer Alcohol intake: never Patient Tobacco Use Status: Never used Tobacco service: No Current occupational status: employed Cognitive needs: No Hearing needs: No Vision needs: No Questionnaire Thrive Questionnaire Date Thrive assessed: 07/20/23 AUDIT C Alcohol Use Questionnaire (AUDIT-C) 1. How often do you have a drink containing alcohol?: Never 3. How often do you have six or more drinks on one occasion?: Never Total Score: 0 Score Reviewed/Action Taken: No YIFAN-7 AMB Questionnaire YIFAN-7 Date YIFAN - 7 assessed: 07/20/23 Source: Developed by Drs. Jona Del Valle, Macie Frias, Christopher Harper and colleagues, with an educational phuong from [employer]. Review of Systems Const Denies body aches, Denies chills, Denies fever(s) and Denies headache(s) Eyes Denies change in vision ENT Denies dizziness, Denies otalgia, Denies headache(s), Denies nasal discharge, Denies sinus pain and Denies sore throat Card Denies chest pain, Denies edema, Reports leg edema, Denies lightheadedness and Denies dyspnea Resp Denies cough, Denies dyspnea and Denies wheezing GI Denies abdominal pain, Denies constipation, Denies diarrhea, Denies nausea and Reports vomiting (Intermittent) Denies dysuria Musc Denies myalgias Skin/Breast Denies rash Neuro Denies dizziness and Denies headache(s) Aller/Immun Denies wheezing Physical exam (Primary Care) Vital Signs: Last Vital Signs Pulse 105 H 10/09/23 10:54 BP 160/84 H 10/09/23 11:29 Pulse Ox 95 10/09/23 10:54 Oxygen Delivery Method Room Air 10/09/23 10:54 BMI result Body Mass Index 29.8 Tobacco/Smoking Status: Tobacco use Status Tobacco use date assessed 10/09/23 10/09/23 11:03 Patient Tobacco Use Status Never used Tobacco 10/09/23 11:03 Thrive Assessment: Date of Thrive Assessment Date Thrive assessed 07/20/23 10/09/23 11:03 Const General: cooperative and no acute distress Orientation/consciousness: patient oriented x3 HENMT Head: Yes normocephalic and Yes atraumatic Ears: TM's normal bilaterally Face and sinus: Yes sinuses nontender Mouth: oropharynx normal and moist mucous membranes Throat: Yes posterior oropharynx normal Eyes General: appearance normal, both eyes and all related structures Pupils: Equal, round and reactive pupils present EOM: EOMs intact bilaterally Neck Neck: Yes normal visual inspection, Yes full ROM and Yes no lymphadenopathy Thyroid: Thyroid normal Resp Effort & Inspection: normal respiratory effort and able to speak in complete sentences Auscultation: clear to auscultation bilaterally, no crackles, no rales, no rhonchi and no wheezes Cardio Rate: regular rate Rhythm: regular rhythm Heart sounds: S1 normal heart sound present, S2 normal heart sound present and no murmurs GI Palpation (GI): Soft to palpation, not firm, nontender, no guarding, not rigid and no hepatosplenomegaly Auscultation: normal bowel sounds General: No CVA tenderness Back/Spine/Pelvis Back: No CVA tenderness Skin General skin exam: no rashes or lesions noted Neuro General: patient oriented x3 Cranial nerves: Yes Equal, round and reactive pupils present Gait exam (Neuro): Normal gait present Extrem Other: Bilateral lower extremity edema +1 nonpitting R>L General: Yes full ROM Assessment and Plan Assessment & Plan (1) Hypertension: Code(s): I10 - Essential (primary) hypertension Plan: Goal BP equal or less than 140/90, blood pressure elevated in the office today, they also reports elevated blood pressures at wound clinic Start lisinopril 5 mg daily-educated about possible adverse reactions and when to notify provider Monitor blood pressures at home Low-sodium diet Follow-up with nurse in 2 weeks for BP recheck (2) Anemia: Code(s): D64.9 - Anemia, unspecified Plan: Patient has blood work orders to recheck CBC (3) Low folate: Code(s): E53.8 - Deficiency of other specified B group vitamins Plan: Continue folic acid (4) Low vitamin D level: Code(s): R79.89 - Other specified abnormal findings of blood chemistry Plan: Continue vitamin D3 (5) Low vitamin B12 level: Code(s): R79.89 - Other specified abnormal findings of blood chemistry Plan: Continue vitamin B12 (6) Screening for colon cancer: Code(s): Z12.11 - Encounter for screening for malignant neoplasm of colon Plan: Patient is to complete Cologuard (7) Screening for breast cancer: Code(s): Z12.39 - Encounter for other screening for malignant neoplasm of breast Plan: Will follow-up on mammogram (8) Lymphedema: Code(s): I89.0 - Lymphedema, not elsewhere classified Plan: Continue to follow-up with Dr. Corea (9) Adult general medical exam: Code(s): Z00.00 - Encounter for general adult medical examination without abnormal findings Plan Follow-up in 3 months Medications: New blood pressure monitor As directed 1 ea 0RF I10 - Essential (primary) hypertension lisinopril 5 mg PO DAILY 30 tabs 2RF I10 - Essential (primary) hypertension Coding Level of Care Code Est Pt Prev Care >65y(40685) Diagnoses Hypertension I10 Anemia D64.9 Low folate E53.8 Low vitamin D level R79.89 Low vitamin B12 level R79.89 Screening for colon cancer Z12.11 Screening for breast cancer Z12.39 Lymphedema I89.0 Adult general medical exam Z00.00
[2023-10-09 11:29] VITALS: BP 160/84
== END 2023-10-09 11:41 | disposition home or self-care (01) ==
PROVIDERS: PCP Nurse Practitioner Family; Visit Provider Nurse Practitioner Family
DX: Z00.00 Encounter for general adult medical examination without abnormal findings (principal); I10 Essential (primary) hypertension; D64.9 Anemia, unspecified; E53.8 Deficiency of other specified B group vitamins; R79.89 Other specified abnormal findings of blood chemistry; Z12.11 Encounter for screening for malignant neoplasm of colon; Z12.39 Encounter for other screening for malignant neoplasm of breast; I89.0 Lymphedema, not elsewhere classified
CPT/HCPCS: 99396

== ENCOUNTER 2023-10-10 08:52 | Outpatient (REF) | payer OTHER, SELFPAY ==
[2023-10-10 10:37] LABS: Hematocrit 39.1 % (37.0-47.0); Mean Corpuscular HGB Conc 30.7 g/dl (31.0-35.0); Mean Corpuscular Volume 84.6 fL (80.0-98.0); Mean Platelet Volume 9.6 fL (9.4-12.3); Platelet Count 224 X10*3/uL (160-400); Red Blood Count 4.62 X10*6/uL (4.20-5.50); Red Cell Distribution Width 15.9 % (11.0-16.0); White Blood Count 4.4 X10*3/uL (4.8-10.8)
[2023-10-10 11:14] LABS: Alanine Aminotransferase 8 U/L (0-31); Albumin Level 3.6 g/dL (3.5-5.0); Alkaline Phosphatase 63 U/L (39-117); Aspartate Amino Transferase 12 U/L (5-31); Bilirubin Direct 0.1 mg/dL (0.0-0.5); Bilirubin Total 0.3 mg/dL (0.0-1.0); Total Protein 7.6 g/dL (6.5-8.0)
== END 2023-10-10 08:53 | disposition home or self-care (01) ==
LOC: HO.LAB 08:52
PROVIDERS: PCP Nurse Practitioner Family; Visit Provider Nurse Practitioner Family
DX: R74.01 Elevation of levels of liver transaminase levels (principal); R10.9 Unspecified abdominal pain; D64.9 Anemia, unspecified; R14.0 Abdominal distension (gaseous); K59.01 Slow transit constipation; R10.13 Epigastric pain
CPT/HCPCS: 36415; 80076; 85027

== ENCOUNTER 2023-10-10 08:52 | Outpatient (AMB) | payer OTHER, SELFPAY ==
--- NOTE | 2023-10-10 08:58 | MHC.OFFVIS ---
Intake Vital Signs 10/10/23 09:01 Height 5 ft 5 in Weight 174 lb 2.643 oz BMI 29.0 BP 182/94 H Blood Pressure Location Lt brachial Position Sitting Pulse 101 H Intake Visit Reasons: abnormal findings of blood chemistry Intake Note: Brigida presents in the office as a new patient for abnormal findings in her blood chemistry. CC: She states that she gets sick and ends up throwing up but she is not sick. Not that often. She gets diarrhea and states that she has had it her whole life. 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 Patient was seen in the ER back in June a year for left lower extremity swelling was found to have superficial thrombophlebitis and was sent to see vascular surgeon. Patient has not following up with them. Diagnosed with lymphedema. During ED visit patient had elevated LFTs. Patient reports to have postprandial epigastric discomfort with occasional nausea and vomiting. Patient reports abdominal bloating and cramping in the right upper quadrant. Patient-was sent for abdominal ultrasound by her PCP. No acute processes found. Patient had cholelithiasis without cholecystitis. Patient reports that she has been constipated and not moving her bowels daily. Patient denies melena, hematochezia, unintentional weight loss or ribbon like stools. Patient reports dyspepsia without dysphagia or odynophagia. [facility] Medical History (Updated 10/09/23 @ 12:52 by THIERNO Gamez) Encounter to establish care Varicose vein of leg Family History Mother Dementia Father Lung cancer Social History Alcohol intake: never Patient Tobacco Use Status: Never used Tobacco service: No Current occupational status: employed Cognitive needs: No Hearing needs: No Vision needs: No Review of Systems Const Denies weight gain and Denies weight loss ENT Reports no additional complaints, Denies dysphagia and Denies odynophagia Card Reports no additional complaints Resp Reports no additional complaints GI Denies abdominal pain, Denies belching, Denies melena, Reports bloating, Denies change in bowel habits, Reports constipation, Denies dysphagia, Denies excessive flatus, Denies dyspepsia, Denies heartburn, Denies diarrhea, Denies loose stools, Reports nausea, Denies odynophagia and Reports vomiting (Occasional) Reports no additional complaints Musc Reports no additional complaints Neuro Reports no additional complaints Psych Reports no additional complaints Endo Reports no additional complaints Physical Exam Vital Signs: Last Vital Signs Pulse 101 H 10/10/23 09:01 BP 182/94 H 10/10/23 09:01 BMI result Body Mass Index 29.0 Const General: healthy appearing, no acute distress and well developed Nutritional Appearance: obese Orientation/consciousness: patient oriented x3 HEENT Head: Yes normal to inspection, Yes normocephalic and Yes atraumatic Face and sinus: Yes normal facial exam Mouth: Normal oral and palatal mucosa present Throat: Yes posterior oropharynx normal, Yes tonsils normal and Yes uvula midline Eyes General: appearance normal, both eyes and all related structures Neck Neck: Yes normal visual inspection, Yes full ROM and Yes trachea midline Thyroid: Thyroid normal Resp Effort & Inspection: normal respiratory effort, able to speak in complete sentences, no tracheal deviation and symmetric chest movement Auscultation: clear to auscultation bilaterally Cardio Rate: regular rate Heart sounds: S1 normal heart sound present and S2 normal heart sound present GI Inspection: Yes normal to inspection, No distended and Yes obesity Palpation (GI): Soft to palpation, not firm, nontender and No hepatosplenomegaly present Auscultation: normal bowel sounds General: Yes no CVA tenderness Back/Spine/Pelvis Back: no CVA tenderness Skin General skin exam: elasticity normal, turgor normal and dry skin Neuro General: patient oriented x3 Psych Appearance: grossly normal Mental Status: mental status grossly normal Results Reviewed Results Reviewed: Laboratory Tests 07/16/23 01:48 Direct Bilirubin 0.7 H AST 303 H ALT 56 H Alkaline Phosphatase 419 H ABDOMINAL ULTRASOUND 2022 FINDINGS: PANCREAS: Normal. ABDOMINAL AORTA: The proximal, mid, and distal segments are normal in caliber. INFERIOR VENA CAVA: Visualized portions are normal. LIVER: The liver is normal in size. The liver contour is normal. 3.6 x 2.9 x 2.0 cm hyperechoic focus is identified in the right hepatic lobe. There is no intrahepatic biliary duct dilatation seen. GALLBLADDER: Layering sludge.. No evidence of stones, polyps, wall thickening or pericholecystic fluid. COMMON BILE DUCT: Normal in caliber measuring 0.7 cm in diameter. RIGHT KIDNEY: Normal. No hydronephrosis. No renal calculi or focal parenchymal lesions. The kidney measures 13.2 cm in maximum dimension. LEFT KIDNEY: Normal. No hydronephrosis. No renal calculi or focal parenchymal lesions. The kidney measures 12.4 cm in maximum dimension. SPLEEN: Spleen is enlarged at 14.5 cm. Prominent perisplenic vessels. FREE FLUID: None. US/US abdomen complete IMPRESSION: 3.6 cm right hepatic hyperechoic focus, question hemangioma versus focal fatty deposition. Gallbladder sludge and borderline common bile duct. Splenomegaly. Question perisplenic varices. Assessment & Plan Assessment & Plan (1) Transaminitis: Code(s): R74.01 - Elevation of levels of liver transaminase levels (2) Postprandial abdominal bloating: Code(s): R14.0 - Abdominal distension (gaseous) (3) Constipation: Code(s): K59.00 - Constipation, unspecified Qualifiers: Constipation type: slow transit constipation Qualified Code(s): K59.01 - Slow transit constipation (4) Postprandial epigastric pain: Code(s): R10.13 - Epigastric pain Plan Patient was encouraged to avoid dietary triggers in late night snacking. She will start taking MiraLax daily. Will send patient to recheck her liver enzymes today. Patient will return in 6 months, sooner on as needed basis. Avoid food that is fat or greasy. Cholelithiasis without cholecystitis. Patient is agreeable to this plan and verbalizes understanding of instructions. She was given the opportunity to ask questions all questions answered. Thank you for allowing me to participate in her care Orders: Orders Liver Panel 10/10/23 R10.9 - Unspecified abdominal pain Medications: New polyethylene glycol 3350 (Miralax) 17 grams PO DAILY 510 grams 2RF Coding Level of Care Code New Pt Level 3 (95799) Diagnoses Transaminitis R74.01 Postprandial abdominal bloating R14.0 Slow transit constipation K59.01 Constipation type: slow transit constipation Postprandial epigastric pain R10.13 Time Spent (min) 40 Comment 30 minutes spent with patient and additional 10 minutes spent reviewing her records
[2023-10-10 09:01] VITALS: BP 182/94; PULSE 101; BMI 29.0
== END 2023-10-10 09:30 | disposition home or self-care (01) ==
PROVIDERS: PCP Nurse Practitioner Family; Visit Provider Nurse Practitioner Family
DX: R74.01 Elevation of levels of liver transaminase levels (principal); R14.0 Abdominal distension (gaseous); K59.01 Slow transit constipation; R10.13 Epigastric pain
CPT/HCPCS: 99203

== ENCOUNTER 2023-12-04 09:04 | Outpatient (AMB) | payer OTHER, SELFPAY ==
[2023-12-04 09:13] VITALS: BMI 27.5
--- NOTE | 2023-12-04 09:13 | MHC.OFFVIS ---
Intake Vital Signs 12/04/23 09:13 Height 5 ft 5 in Weight 165 lb BMI 27.5 Intake Visit Reasons: Follow Up 08/11 [facility] Intake Note: Follow up [facility] 08/09/23. Has bilateral LE swelling, does have some difficulty walking, heaviness, wearing compression stockings and states she has not heard from [facility] yet. Has hyperkeratosis Accompanied by: Spouse Allergies No Known Allergies Allergy (Verified 12/04/23 09:19) HPI Follow Up 08/11 [facility] HPI Details Very pleasant 63-year-old female presents for follow-up regarding significantly swollen bilateral lower extremities. She he unfortunately has not been able to receive the lymphedema pumps as of yet. She continues to have significantly swollen and painful lower extremities. She now presents for follow-up with venous insufficiency testing. [facility] Medical History Encounter to establish care Varicose vein of leg Family History Mother Dementia Father Lung cancer Social History Alcohol intake: never Patient Tobacco Use Status: Never used Tobacco service: No Current occupational status: employed Cognitive needs: No Hearing needs: No Vision needs: No Review of Systems Const Reports as per HPI ENT Reports no additional complaints Card Denies chest pain, Denies chest pain at rest and Denies chest pain with activity Resp Denies chest congestion and Denies cough GI Reports no additional complaints Musc Details: pain over varicosities, aching of lower extremities, swelling, cramping, heaviness and tiredness, itching Denies abnormal gait Skin/Breast Reports pruritus and Denies wounds Neuro Reports no additional complaints and Denies abnormal gait Psych Denies no additional complaints Physical Exam Vital Signs: BMI result Body Mass Index 27.5 Const General: cooperative, healthy appearing and comfortable Orientation/consciousness: oriented to person, oriented to place and oriented to time Neck Carotids: no bruits Chest Chest palpation & inspection: normal inspection of the chest and normal palpation of entire chest wall Resp Effort & Inspection: normal respiratory effort and able to speak in complete sentences Cardio Rate: regular rate Heart sounds: S1 normal heart sound present and S2 normal heart sound present Peripheral pulses: Peripheral pulses 2+ throughout GI Inspection: Yes normal to inspection Skin Other: +2 edema, large rope-like varicosities greater than 4 mm CEAP Classification C4 - skin color changes Ep - Etiology Primary As - superficial veins P - reflux General skin exam: dry skin Neuro General: oriented to person, oriented to place and oriented to time Extrem Other: Significantly swollen bilateral calfs. Right lower extremity: full ROM, normal capillary refill and edema Left lower extremity: full ROM, normal capillary refill and edema Psych Mental Status: mental status grossly normal Results Reviewed Results Reviewed: Brief summary of venous insufficiency testing is as follows: right great saphenous vein: negative right small saphenous vein: negative right accessory vein: Present and positive left great saphenous vein: Positive left small saphenous vein: negative left accessory vein: none present Please note there is no evidence of any venous aneurysms or significant tortuosity Assessment & Plan Assessment & Plan (1) Varicose veins of left lower extremity with inflammation: Code(s): I83.12 - Varicose veins of left lower extremity with inflammation Plan: This patient has varicose veins with inflammation. They continue to be a source of discomfort for the patient. The patient has tried conservative treatment with compression, leg elevation and exercise program for over 3 months time. They have been compliant with all treatment. This has provided minimal relief for the patient. I do not anticipate this course of treatment will alter the underlying etiology. The patient has been scheduled for lower extremity venous treatment inclusive of --- left great saphenous vein Cyanoacralate ablation. Risks, benefits, and complications of this procedure has been discussed in detail with the patient including but not limited to bleeding, infection, and the development of a DVT. The patient has demonstrated a clear understanding and has consented. We will schedule the patient as soon as possible. Thank you for allowing us to participate in this patient's care. If there are any questions or concerns please do not hesitate to contact us. 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 Her legs are significantly swollen and would definitely benefit from lymphedema pumps. We are reaching out to the lymphedema pump company today in the hopes of trying to expedite this as they have not reached out to her as of yet. Patient will follow-up with us regarding venous disease. We will try to continue to help this patient. Thank you for allowing us to assist in her care. 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
== END 2023-12-04 09:56 | disposition home or self-care (01) ==
PROVIDERS: PCP Nurse Practitioner Family; Visit Provider Surgery Vascular Surgery
DX: I83.12 Varicose veins of left lower extremity with inflammation (principal); I89.0 Lymphedema, not elsewhere classified; R60.9 Edema, unspecified
CPT/HCPCS: 99214

== ENCOUNTER → 2023-12-04 09:04 | Outpatient (BNVA) | payer OTHER, SELFPAY | PROVIDERS: PCP Nurse Practitioner Family; Visit Provider Surgery Vascular Surgery ==

== ENCOUNTER 2023-12-11 08:34 | Outpatient (AMB) | payer OTHER, SELFPAY ==
--- NOTE | 2023-12-11 08:35 | MHC.PC.OV ---
Intake Visit Reasons: Letter for SS Intake Note: Patient is here today for letter for Social Security that she is retired and medical issues Special Education Supervisor Required: No Automotive Service Management Teacher: Not Required per policy Accompanied by: Self / Same As Patient Allergies No Known Allergies Allergy (Verified 12/15/23 20:40) Medication List - Last Reconciled 12/15/23 by Stevenson Ocasio MD blood pressure monitor As directed cholecalciferol (vitamin D3) 50 mcg PO DAILY cyanocobalamin (vitamin B-12) 1,000 mcg PO DAILY folic acid 0.4 mg PO DAILY lisinopril 5 mg PO DAILY polyethylene glycol 3350 (Miralax) 17 grams PO DAILY Tobacco use date assessed: 10/09/23 Dental Screening Dental Screen Date: 12/11/23 Did you have a dental visit in the last 12 months?: Yes Did you have a dental problem in the last 6 months where you did not have access to dental care?: No Was dental information given to patient?: Patient has dentist HPI Letter for SS HPI Details 63-year-old female wishes to discuss health condition tele [facility]. Patient would like to for social security as she is no longer able to work. 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 She is seeing a vascular surgeon was planning to do some form of surgery towards the end of the year. Walking, standing for long duration, climbing stairs aggravates in worsens her leg pain. She has to sit down for rest. [facility]LY [facility] Medical History (Updated 12/04/23 @ 10:56 by Felice Corea MD) Encounter to establish care Varicose vein of leg Surgical History (Updated 12/11/23 @ 08:37 by ERICK Cote) History of placement of ear tubes Family History (Updated 12/11/23 @ 08:38 by REICK Cote) Mother Dementia Father Lung cancer Social History Housing: Condominium Alcohol intake: never Patient Tobacco Use Status: Never used Tobacco e-Cigarette/Vaping Use: Never Used Second Hand Smoke Exposure: No service: No Current occupational status: retired and disabled Cognitive needs: No Hearing needs: No Vision needs: Yes (glasses) Questionnaire PHQ-9 Over the last 2 weeks, how often have you been bothered by any of the following problems? 1. Little interest or pleasure in doing things: not at all 2. Feeling down, depressed, or hopeless: not at all 3. Trouble falling or staying asleep, or sleeping too much: not at all 4. Feeling tired or having little energy: not at all 5. Poor appetite or overeating: not at all 6. Feeling bad about yourself - or that you are a failure or have let yourself or your family down: not at all 7. Trouble concentrating on things, such as reading the newspaper or watching television: not at all 8. Moving or speaking so slowly that other people could have noticed. Or the opposite - being so fidgety or restless that you have been moving around a lot more than usual: not at all 9. Thoughts that you would be better off or of hurting yourself in some way: not at all Total score: 0 Depression Screening Interpretation: Negative Depression Screening Done: Yes Source: Developed by Drs. Jona Del Valle, Macie Frias, Christopher Harper and colleagues, with an educational phuong from [employer]. Thrive Questionnaire Date Thrive assessed: 12/11/23 I am a: Patient What is your living situation today?: I have a steady place to live Within the past 12 months, did the food you bought not last and you didn't have the money to get more?: Never true Within the past 12 months, did you worry whether your food would run out before you got money to buy more?: Never true Do you have trouble paying for medicines?: No Do you have trouble getting transportation to medical appointments?: No Do you have trouble paying your heating and electricity bill?: No Do you have trouble taking care of your child, family member or friend?: No Do you have trouble with day-to-day activities such as bathing, preparing meals, shopping, managing finances, etc.?: No Are you currently unemployed and looking for a job?: No Are you interested in more education?: No Currently or been in a relationship where the following occur: no concerns reported THRIVE Score: 0 AUDIT C Alcohol Use Questionnaire (AUDIT-C) 1. How often do you have a drink containing alcohol?: Never Total Score: 0 YIFAN-7 AMB Questionnaire YIFAN-7 Date YIFAN - 7 assessed: 12/11/23 Feeling nervous, anxious, or on edge: 0 = Not at all Not being able to stop or control worryin = Not at all Worrying too much about different things: 0 = Not at all Trouble relaxin = Not at all Being so restless that it is hard to sit still: 0 = Not at all Becoming easily annoyed or irritable: 0 = Not at all Feeling afraid as if something awful might happen: 0 = Not at all Total YIFAN-7 score (0-4 normal; 5-9 mild; 10-14 moderate; 15-21 severe): 0 Source: Developed by Drs. Jona Del Valle, Macie Frias, Christopher Harper and colleagues, with an educational phuong from [employer]. Physical exam (Primary Care) Tobacco/Smoking Status: Tobacco use Status Tobacco use date assessed 10/09/23 12/11/23 08:39 Patient Tobacco Use Status Never used Tobacco 12/11/23 08:39 e-Cigarette/Vaping Use Never Used 12/11/23 08:39 PHQ-9: PHQ-9 Score PHQ-9: Total score 0 12/11/23 13:21 Depression Screening Interpretation: Negative Thrive Assessment: Date of Thrive Assessment Date Thrive assessed 12/11/23 12/11/23 08:39 Currently or been in a relationship where the following occur: no concerns reported Telehealth Telehealth Location of provider rendering services: practice address Location of patient: address on file Patient Identification confirmed using: Name, : Yes Telehealth method: voice only Patient verbally consented to treatment: Yes Patient verbally consented to billing insurance company: Yes Patient informed of any privacy concerns related to visit: Yes Minutes spent on Phone/Video with Pt.: 15 Assessment and Plan Assessment & Plan (1) Lymphedema due to lipedema: Code(s): I89.0 - Lymphedema, not elsewhere classified; R60.9 - Edema, unspecified Plan: Patient was informed that a letter is not provided. Usually the social security Administration will send a packet ultralight in the reasons for which she could not work. I have offered to help per filling that packet. Coding Level of Care Code Est Pt Level 3 (79826) Diagnoses Lymphedema due to lipedema I89.0; R60.9
== END 2023-12-11 11:34 | disposition home or self-care (01) ==
LOC: HO.HMGH 08:35
PROVIDERS: PCP Nurse Practitioner Family; Visit Provider Internal Medicine
DX: I89.0 Lymphedema, not elsewhere classified (principal); R60.9 Edema, unspecified
CPT/HCPCS: 99213

== ENCOUNTER 2024-01-30 10:06 | Outpatient (AMB) | payer OTHER, SELFPAY ==
--- NOTE | 2024-01-30 10:29 | A.OFFPC_ITS ---
Vital Signs 01/30/24 10:31 Height 5 ft 5 in Weight 166 lb 2 oz BMI 27.6 BP 132/72 Blood Pressure Location Lt brachial Position Sitting Pulse 101 H Pulse Source Pulse Oximeter Pulse Oximetry (%) 97 Oxygen Delivery Method Room Air Intake Visit Reasons: F/U on HTN, HLD Intake Note: Patient is here to follow up on HTN, HLD. Soap Slabber Required: No Manager Field Investigations: Present Accompanied by: Sister Allergies No Known Allergies Allergy (Verified 01/31/24 05:56) Medication List - Last Reconciled 01/31/24 by Stevenson Ocasio MD blood pressure monitor As directed cholecalciferol (vitamin D3) 50 mcg PO DAILY cyanocobalamin (vitamin B-12) 1,000 mcg PO DAILY folic acid 0.4 mg PO DAILY lisinopril 5 mg PO DAILY polyethylene glycol 3350 (Miralax) 17 grams PO DAILY Tobacco use date assessed: 01/30/24 Dental Screening Dental Screen Date: 01/30/24 Did you have a dental visit in the last 12 months?: Yes Did you have a dental problem in the last 6 months where you did not have access to dental care?: No Was dental information given to patient?: Patient has dentist HPI F/U on HTN, HLD HPI Details 64-year-old female presents to the offic e to discuss her medical conditions. She is accompanied by her sister. Patient is walking with difficulty and shuffles into the examination room. Both her legs continue to swell up. She has been unable to work and has applied for disability. Patient was following up at the wound clinic till a few months ago, wearing the stocking and the swelling in the legs were reasonably controlled. However the stocking she felt was very uncomfortable and she stopped wearing them. She has stopped going to the wound clinic and the scaling, bleeding in the lower legs has worsened. Patient had an appointment with the vascular surgeon. According to the patient, the surgeon wanted to do an experimental treatment which the insurance company has denied. 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 Jona Del Valle, Macie Frias, Christopher Harper and colleagues, with an educational phuong from [employer]. Physical exam (Primary Care) Vital Signs: Last Vital Signs Pulse 101 H 01/30/24 10:31 BP 132/72 01/30/24 10:31 Pulse Ox 97 01/30/24 10:31 Oxygen Delivery Method Room Air 01/30/24 10:31 BMI result Body Mass Index 27.6 Tobacco/Smoking Status: Tobacco use Status Tobacco use date assessed 01/30/24 01/30/24 10:38 Patient Tobacco Use Status Never used Tobacco 01/30/24 10:38 e-Cigarette/Vaping Use Never Used 01/30/24 10:38 Thrive Assessment: Date of Thrive Assessment Date Thrive assessed 12/11/23 01/30/24 10:38 Const General: cooperative and healthy appearing Nutritional Appearance: well nourished Orientation/consciousness: patient oriented x3 Limitations: no limitations HENMT Head: Yes normal to inspection Eyes General: appearance normal, both eyes and all related structures Neck Neck: Yes normal visual inspection Chest Chest palpation & inspection: normal palpation of entire chest wall Resp Effort & Inspection: normal respiratory effort Neuro General: patient oriented x3 Extrem Other: Right and left lower extremity: Chronic changes. Breaking of the skin with crusting and evidence of old bleeding. Thickened skin with nonpitting edema. Ankles not visible. Assessment and Plan Assessment & Plan (1) Lymphedema due to lipedema: Code(s): I89.0 - Lymphedema, not elsewhere classified; R60.9 - Edema, unspecified Plan: 15 minutes spent reviewing recommendations from the vascular surgeon. Patient still has not received the lymphedema pumps. I will be calling the vascular surgeon to discuss this matter. Wound clinic appointment to be made again to resume treatment. Patient is going to need multiple visits for creams and application of the compression stocking. (2) Skin ulcer of right lower leg: Code(s): L97.919 - Non-pressure chronic ulcer of unspecified part of right lower leg with unspecified severity Plan: Treatment Plan as above. (3) Varicose veins of left lower extremity with inflammation: Code(s): I83.12 - Varicose veins of left lower extremity with inflammation (4) Hypertension: Code(s): I10 - Essential (primary) hypertension Plan: Blood pressure is stable. Continue current medications. Blood work has been ordered. Orders: Referrals Wound Care Referral I89.0 - Lymphedema, not elsewhere classified, L97.919 - Non-pressure chronic ulcer of unspecified part of right lower leg with unspecified severity, R60.9 - Edema, unspecified Coding Level of Care Code Est Pt Level 4 (24950) Diagnoses Lymphedema due to lipedema I89.0; R60.9 Skin ulcer of right lower leg L97.919 Varicose veins of left lower extremity with inflammation I83.12 Hypertension I10
[2024-01-30 10:31] VITALS: BP 132/72; PULSE 101; O2SAT 97; BMI 27.6
== END 2024-01-30 11:18 | disposition home or self-care (01) ==
PROVIDERS: PCP Nurse Practitioner Family; Visit Provider Internal Medicine
DX: I89.0 Lymphedema, not elsewhere classified (principal); R60.9 Edema, unspecified; L97.919 Non-pressure chronic ulcer of unspecified part of right lower leg with unspecified severity; I83.12 Varicose veins of left lower extremity with inflammation; I10 Essential (primary) hypertension
CPT/HCPCS: 99214

== ENCOUNTER 2024-02-02 10:54 | Outpatient (REF) | payer OTHER, SELFPAY ==
[2024-02-02 12:03] LABS: Hematocrit 39.8 % (37.0-47.0); Hemoglobin 12.3 g/dl (12.0-16.0); Mean Corpuscular HGB Conc 30.9 g/dl (31.0-35.0); Mean Corpuscular Hemoglobin 25.8 pg (27.0-33.0); Mean Corpuscular Volume 83.6 fL (80.0-98.0); Mean Platelet Volume 9.6 fL (9.4-12.3); Platelet Count 223 X10*3/uL (160-400); Red Blood Count 4.76 X10*6/uL (4.20-5.50); White Blood Count 5.4 X10*3/uL (4.8-10.8)
[2024-02-02 12:49] LABS: Alanine Aminotransferase 13 U/L (0-31); Albumin Level 3.7 g/dL (3.5-5.0); Alkaline Phosphatase 63 U/L (39-117); Anion Gap 12 (12-20); Aspartate Amino Transferase 18 U/L (5-31); Bilirubin Direct 0.2 mg/dL (0.0-0.5); Bilirubin Total 0.4 mg/dL (0.0-1.0); Blood Urea Nitrogen 12 mg/dL (9-16); Calcium 9.5 mg/dL (8.4-10.2); Carbon Dioxide 28 mmol/L (22-29); Chloride 104 mmol/L (96-108); Cholesterol 157 mg/dL (<200); Estimated Glomerular Filt Rate > 60; Glucose Random 92 mg/dL (60-115); HDL Cholesterol 37 mg/dL (>40); LDL Cholesterol Calculated 103 mg/dL (<100); Potassium 4.5 mmol/L (3.3-5.1); Sodium 139 mmol/L (135-145); Total Protein 8.2 g/dL (6.5-8.0); Triglycerides 88 mg/dL (<150)
[2024-02-02 13:06] LABS: Thyroid Stimulating Hormone 1.59 uIU/mL (0.32-4.0)
== END 2024-02-02 10:55 | disposition home or self-care (01) ==
LOC: HO.HMGCLDS 10:54
PROVIDERS: PCP Internal Medicine; Visit Provider Internal Medicine
DX: I83.12 Varicose veins of left lower extremity with inflammation (principal); I10 Essential (primary) hypertension; I89.0 Lymphedema, not elsewhere classified; R60.9 Edema, unspecified
CPT/HCPCS: 36415; 80048; 80061; 80076; 84443; 85027

== ENCOUNTER 2024-02-11 10:56 | Outpatient (AMB) | payer OTHER, SELFPAY ==
--- NOTE | 2024-02-11 10:58 | A.OFFVIS_ITS ---
Intake Vital Signs 02/11/24 10:59 Height 5 ft 5 in Weight 158 lb 11.725 oz BMI 26.4 BP 130/72 Blood Pressure Location Lt brachial Position Sitting Pulse 94 Intake Visit Reasons: NPV/Heart Disease/B. [place] Intake Note: NPV Administrative Associate Required: No Accompanied by: Spouse Allergies No Known Allergies Allergy (Verified 02/11/24 11:02) Medication List - Last Reconciled 02/11/24 by Yinka Lazar MD blood pressure monitor As directed cholecalciferol (vitamin D3) 50 mcg PO DAILY folic acid 0.4 mg PO DAILY lisinopril 5 mg PO DAILY HPI HPI Comments History of Present Illness Details Brigida is here for consultation regarding an abnormal echocardiogram. Recent echocardiogram had reported inferior wall motion abnormality and hence she is here. She denies any history of coronary disease, myocardial infarction or cardiomyopathy or in fact any cardiac issues at all. According to her, she can generally do things without any difficulty although there is issue with gait because of the lymphedema. Denies any chest pains or shortness of breath. She states that she used to weigh close to 190 lb but she is lost lot of weight recently. [facility]LY [facility] Medical History (Updated 02/11/24 @ 11:45 by Yinka Lazar MD) Lymphedema due to lipedema Varicose veins of left lower extremity with inflammation Hypertension Surgical History History of placement of ear tubes Family History Mother Dementia Father Lung cancer Social History Housing: Condominium Alcohol intake: never Patient Tobacco Use Status: Never used Tobacco e-Cigarette/Vaping Use: Never Used Second Hand Smoke Exposure: No service: No Current occupational status: retired and disabled Cognitive needs: No Hearing needs: No Vision needs: Yes (glasses) Review of Systems Const Denies chills, Denies daytime sleepiness, Denies fatigue, Denies fever(s), Denies frequent falls, Denies night sweats, Denies snoring, Denies weakness, Denies weight gain and Denies weight loss Eyes Denies loss of vision ENT Denies dizziness and Denies hearing loss Card Denies chest pain, Denies chest pain with activity, Denies syncope, Denies rapid heart rate, Denies edema, Denies claudication, Denies leg edema, Denies ligh theadedness, Denies palpitations, Denies dyspnea, Denies dyspnea on exertion and Denies orthopnea Resp Denies cough, Denies excessive phlegm production, Denies dyspnea, Denies dyspnea on exertion, Denies snoring and Denies wheezing GI Denies abdominal pain, Denies hematochezia, Denies change in bowel habits, Denies change in stool character, Denies heartburn, Denies nausea and Denies vomiting Denies hematuria, Denies urinary frequency and Denies dysuria Musc Denies arthralgias, Denies muscle weakness, Denies numbness and Denies tingling Skin/Breast Denies nail changes and Denies rash Neuro Denies Abnormal speech present, Denies dizziness, Denies syncope, Denies frequent falls, Denies loss of vision, Denies memory loss, Denies numbness, Denies tingling and Denies weakness Psych Denies depression and Denies memory loss Endo Denies fatigue and Denies palpitations Aller/Immun Denies wheezing Physical Exam Vital Signs: Last Vital Signs Pulse 94 02/11/24 10:59 BP 130/72 02/11/24 10:59 BMI result Body Mass Index 26.4 Const General: comfortable and no acute distress Orientation/consciousness: patient oriented x3 HEENT Other: Unremarkable Head: Yes normal to inspection Neck Neck: Yes normal visual inspection Chest Chest palpation & inspection: normal inspection of the chest Resp Auscultation: clear to auscultation bilaterally Cardio Palpation: normal PMI Heart sounds: S1 normal heart sound present, S2 normal heart sound present, no gallops, no murmurs and no rubs GI Palpation (GI): Soft to palpation Back/Spine/Pelvis Other: unremarkable Skin General skin exam: no rashes or lesions noted Neuro General: patient oriented x3 Speech: No Abnormal speech present Extrem Other: Bilaterally swollen extremities with chronic changes. General: Yes normal to inspection Psych Mental Status: mental status grossly normal Assessment & Plan Assessment & Plan (1) Regional wall motion abnormality of heart: Code(s): R93.1 - Abnormal findings on diagnostic imaging of heart and coronary circulation (2) Atherosclerotic cardiovascular disease: Code(s): I25.10 - Atherosclerotic heart disease of [place] coronary artery without angina pectoris (3) Varicose veins of right lower extremity with inflammation: Code(s): I83.11 - Varicose veins of right lower extremity with inflammation (4) Lymphedema due to lipedema: Code(s): I89.0 - Lymphedema, not elsewhere classified; R60.9 - Edema, unspecified Plan Cardiac studies reviewed. EKG with sinus tachycardia 101/Min; no significant ST-T changes and otherwise unremarkable. In the echocardiogram, LVEF 60%. The basal inferior/inferolateral wall appears hypokinetic on review of images. Right ventricular function is unremarkable. Otherwise no significant findings. Clinically she has got no angina but findings on echocardiogram suggest underlying coronary disease. We will proceed with the pharmacological stress perfusion imaging study for further evaluation. Highly unlikely to exercise on the treadmill because of lymphedema and difficulty walking. Otherwise, with regard to the swelling in the lower extremities doubt it is cardiac in nature. Echocardiogram as discussed above does not explain the degree of swelling and also cardiac BNP is well within normal limits. Will follow-up after the stress test. Discussed with significant other. Orders: Orders CA lexiscan stress w roman Today I20.9 - Angina pectoris, unspecified, I25.10 - Atherosclerotic heart disease of [place] coronary artery without angina pectoris NM cardiolite stress test Today I25.10 - Atherosclerotic heart disease of [place] coronary artery without angina pectoris, R07.2 - Precordial pain Coding Level of Care Code New Pt Level 4 (39372) Diagnoses Regional wall motion abnormality of heart R93.1 Atherosclerotic cardiovascular disease I25.10 Varicose veins of right lower extremity with inflammation I83.11 Lymphedema due to lipedema I89.0; R60.9
[2024-02-11 10:59] VITALS: BP 130/72; PULSE 94; BMI 26.4
== END 2024-02-11 11:18 | disposition home or self-care (01) ==
PROVIDERS: PCP Nurse Practitioner Family; Visit Provider Internal Medicine
DX: I25.10 Atherosclerotic heart disease of native coronary artery without angina pectoris (principal); R93.1 Abnormal findings on diagnostic imaging of heart and coronary circulation; I83.11 Varicose veins of right lower extremity with inflammation; I89.0 Lymphedema, not elsewhere classified; R60.9 Edema, unspecified
CPT/HCPCS: 99214

== ENCOUNTER → 2024-02-11 10:56 | Outpatient (BNVA) | payer OTHER, SELFPAY | PROVIDERS: PCP Nurse Practitioner Family; Visit Provider Internal Medicine ==

== ENCOUNTER 2024-02-15 09:03 | Outpatient (RCR) | payer OTHER, SELFPAY | END 2024-06-09 13:58 | disposition home or self-care (01) | LOC: HO.WCC 09:03 | PROVIDERS: PCP Internal Medicine; Visit Provider Surgery | DX: Z09 Encounter for follow-up examination after completed treatment for conditions other than malignant neoplasm (principal); I89.0 Lymphedema, not elsewhere classified; I73.9 Peripheral vascular disease, unspecified; I25.10 Atherosclerotic heart disease of native coronary artery without angina pectoris; Z87.2 Personal history of diseases of the skin and subcutaneous tissue | CPT/HCPCS: 11042; 97597; 99212; 99213 ==

== ENCOUNTER 2024-03-05 09:57 | Outpatient (AMB) | payer OTHER, SELFPAY ==
--- NOTE | 2024-03-05 10:07 | A.OFFPC_ITS ---
Vital Signs 03/05/24 10:08 Height 5 ft 5 in Weight 160 lb 4 oz BMI 26.7 BP 114/64 Blood Pressure Location Lt brachial Position Sitting Pulse 62 Pulse Source Pulse Oximeter Pulse Oximetry (%) 99 Oxygen Delivery Method Room Air Intake Visit Reasons: 1 month f/u Intake Note: Patient is here to follow up on HTN, Lymphedema. Pastry Cook Apprentice Required: No Mobile Plant Operators: Present Accompanied by: Family/Other Allergies No Known Allergies Allergy (Verified 03/06/24 06:26) Medication List - Last Reconciled 03/06/24 by Stevenson Ocasio MD blood pressure monitor As directed cefuroxime axetil 250 mg PO BID cholecalciferol (vitamin D3) 50 mcg PO DAILY folic acid 0.4 mg PO DAILY lisinopril 5 mg PO DAILY Tobacco use date assessed: 03/05/24 Dental Screening Dental Screen Date: 01/30/24 HPI 1 month f/u HPI Details 64yr old female presents to the office f or a follow up visit. Since last OV, pt has seen the yarn spooler. Echo was done and leg edema due to cardiac reasons were ruled out. Subsequently saw the vascular surgeon and the wound clinic. Pt is being set up for the lymphedema pump and the company rep was at her home yesterday taking measurements. Feels well, after visits to the wound clinic and appropriate bandages her swelling in the legs are slightly improving. Currently on oral abx for presumed skin infections. She is able to walk without any devices. Strong family support. [facility] Medical History Lymphedema due to lipedema Varicose veins of left lower extremity with inflammation Hypertension Surgical History History of placement of ear tubes Family History Mother Dementia Father Lung cancer Social History Housing: Condominium Alcohol intake: never Patient Tobacco Use Status: Never used Tobacco e-Cigarette/Vaping Use: Never Used Second Hand Smoke Exposure: No service: No Current occupational status: retired and disabled Cognitive needs: No Hearing needs: No Vision needs: Yes (glasses) Questionnaire Thrive Questionnaire Date Thrive assessed: 12/11/23 YIFAN-7 AMB Questionnaire YIFAN-7 Date YIFAN - 7 assessed: 12/11/23 Source: Developed by Drs. Jona Del Valle, Macie Frias, Christopher Harper and colleagues, with an educational phuong from [employer]. Physical exam (Primary Care) Vital Signs: Last Vital Signs Pulse 62 03/05/24 10:08 BP 114/64 03/05/24 10:08 Pulse Ox 99 03/05/24 10:08 Oxygen Delivery Method Room Air 03/05/24 10:08 Care Plan Goal for BP management: BP is stable and in range. BMI result Body Mass Index 26.7 Tobacco/Smoking Status: Tobacco use Status Tobacco use date assessed 03/05/24 03/05/24 10:14 Patient Tobacco Use Status Never used Tobacco 03/05/24 10:14 e-Cigarette/Vaping Use Never Used 03/05/24 10:14 Thrive Assessment: Date of Thrive Assessment Date Thrive assessed 12/11/23 03/05/24 10:14 Const General: cooperative and healthy appearing Nutritional Appearance: well nourished Orientation/consciousness: patient oriented x3 Limitations: no limitations HENMT Head: Yes normal to inspection Eyes General: appearance normal, both eyes and all related structures Neck Neck: Yes normal visual inspection Chest Chest palpation & inspection: normal palpation of entire chest wall Resp Effort & Inspection: normal respiratory effort Skin Other: Right and left legs are in bandages. They were not removed or examined. Neuro General: patient oriented x3 Results Reviewed Results Reviewed: Echo and Cardiology consult revd Assessment and Plan Assessment & Plan (1) Lymphedema due to lipedema: Code(s): I89.0 - Lymphedema, not elsewhere classified; R60.9 - Edema, unspecified Plan: Awaiting the pump. Significant improvement in the leg swelling is expected after she starts using the pump. Continue to follow up at the wound clinic for the skin infection. (2) Varicose veins of left lower extremity with inflammation: Code(s): I83.12 - Varicose veins of left lower extremity with inflammation Plan: Once there is improvement in the swelling and the lymphedema stabilizes, vein stripping will be considered again. (3) Hypertension: Code(s): I10 - Essential (primary) hypertension Plan: BP is stable, continue current medications. Coding Level of Care Code Est Pt Level 4 (35400) Diagnoses Lymphedema due to lipedema I89.0; R60.9 Varicose veins of left lower extremity with inflammation I83.12 Hypertension I10
[2024-03-05 10:08] VITALS: BP 114/64; PULSE 62; O2SAT 99; BMI 26.7
== END 2024-03-05 10:46 | disposition home or self-care (01) ==
PROVIDERS: PCP Nurse Practitioner Family; Visit Provider Internal Medicine
DX: I89.0 Lymphedema, not elsewhere classified (principal); R60.9 Edema, unspecified; I83.12 Varicose veins of left lower extremity with inflammation; I10 Essential (primary) hypertension
CPT/HCPCS: 99214

== ENCOUNTER 2024-05-20 09:49 | Outpatient (AMB) | payer OTHER, SELFPAY ==
--- NOTE | 2024-05-20 09:57 | MHC.OFFVIS ---
Vital Signs 05/20/24 09:58 Height 5 ft 5 in Weight 158 lb 11.725 oz BMI 26.4 BP 158/66 H Blood Pressure Location Lt brachial Position Sitting Pulse 82 Pulse Source Pulse Oximeter Pulse Oximetry (%) 100 Oxygen Delivery Method Room Air Intake Visit Reasons: 6 month follow up Intake Note: Brigida presents in office today for a scheduled 6 mos FUV. CC: Brigida did have lab orders placed at her last office visit. Pt did have these labs drawn. No new Rx at last visit. Pt reports that her sx have been well controlled since her last visit. Pt reports that she had stopped taking the powder but has started taking it again as of about 1.5 mos ago and has not had any issues since restarting it. 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 She will start taking MiraLax daily. Will send patient to recheck her liver enzymes today. Patient will return in 6 months, sooner on as needed basis. Avoid food that is fat or greasy. Cholelithiasis without cholecystitis. Patient is agreeable to this plan and verbalizes understanding of instructions. She was given the opportunity to ask questions all questions answered. ? Thank you for allowing me to participate in her care Orders Orders Liver Panel 10/10/23 R10.9 Medications New polyethylene glycol 3350 (Miralax) 17 grams PO DAILY 510 grams 2RF TODAY'S VISIT Patient is here today for follow-up. Patient reports that she has been feeling quite well. Patient lost weight since the last time I have seen her. Has been feeling good. Avoiding certain food. Eating healthier meals. Liver enzymes have normalized. Patient denies any abdominal pain or discomfort. States that her bowels are moving much better. She is using MiraLax on as needed basis. Denies melena, hematochezia, unintentional weight loss or ribbon like stools. Patient denies any dyspepsia, dysphagia or odynophagia. Patient had Cologuard done last month and it was negative. She continues to decline colonoscopy at this time. [facility] Medical History Lymphedema due to lipedema Varicose veins of left lower extremity with inflammation Hypertension Surgical History History of placement of ear tubes Family History Mother Dementia Father Lung cancer Social History Housing: Condominium Alcohol intake: never Patient Tobacco Use Status: Never used Tobacco e-Cigarette/Vaping Use: Never Used Second Hand Smoke Exposure: No service: No Current occupational status: retired and disabled Cognitive needs: No Hearing needs: No Vision needs: Yes (glasses) Review of Systems Const Denies weight gain and Denies weight loss ENT Reports no additional complaints, Denies dysphagia and Denies odynophagia Card Reports no additional complaints Resp Reports no additional complaints GI Denies abdominal pain, Denies belching, Denies melena, Denies bloating, Denies change in bowel habits, Denies dysphagia, Denies excessive flatus, Denies dyspepsia, Denies heartburn, Denies diarrhea, Denies loose stools, Denies nausea, Denies odynophagia and Denies vomiting Musc Reports no additional complaints Neuro Reports no additional complaints Psych Reports no additional complaints Endo Reports no additional complaints Physical Exam Vital Signs: Last Vital Signs Pulse 82 05/20/24 09:58 BP 158/66 H 05/20/24 09:58 Pulse Ox 100 05/20/24 09:58 Oxygen Delivery Method Room Air 05/20/24 09:58 BMI result Body Mass Index 26.4 Const General: healthy appearing, no acute distress and well developed Nutritional Appearance: obese Orientation/consciousness: patient oriented x3 Resp Effort & Inspection: normal respiratory effort, able to speak in complete sentences, no tracheal deviation and symmetric chest movement Auscultation: clear to auscultation bilaterally Cardio Rate: regular rate GI Inspection: Yes normal to inspection, No distended and Yes obesity Palpation (GI): Soft to palpation, not firm, nontender and No hepatosplenomegaly present Auscultation: normal bowel sounds General: Yes no CVA tenderness Back/Spine/Pelvis Back: no CVA tenderness Skin General skin exam: elasticity normal, turgor normal and dry skin Neuro General: patient oriented x3 Psych Appearance: grossly normal Mental Status: mental status grossly normal Results Reviewed Results Reviewed: Laboratory Tests 07/16/23 10/10/23 02/02/24 01:48 10:03 11:07 Direct Bilirubin 0.1 0.2 AST 303 H 12 18 ALT 56 H 8 13 Alkaline Phosphatase 419 H 63 63 Assessment & Plan Assessment & Plan (1) Transaminitis: Code(s): R74.01 - Elevation of levels of liver transaminase levels (2) Postprandial abdominal bloating: Code(s): R14.0 - Abdominal distension (gaseous) (3) Constipation: Code(s): K59.00 - Constipation, unspecified Qualifiers: Constipation type: slow transit constipation Qualified Code(s): K59.01 - Slow transit constipation (4) Postprandial epigastric pain: Code(s): R10.13 - Epigastric pain Plan Continue current diet. High-protein low-fat diet recommended. Patient reports that she is eating more vegetables and fruits. Continue high-fiber diet. MiraLax on as needed basis. Cologuard negative. Continues to decline colonoscopy. Next Cologuard in 3 years, sooner if clinically necessary. Patient will follow-up in the office in 1 year. She will call if she will have any GI concerning symptoms. Patient is agreeable to this plan and verbalizes understanding of instructions. She was given the opportunity to ask questions and all questions answered. Thank you for allowing me to participate in her care Medications: New polyethylene glycol 3350 (Miralax) 17 grams PO DAILY 510 grams 2RF Coding Level of Care Code Est Pt Level 3 (56881) Diagnoses Transaminitis R74.01 Postprandial abdominal bloating R14.0 Slow transit constipation K59.01 Constipation type: slow transit constipation Postprandial epigastric pain R10.13 Time Spent (min) 30 Comment 20 minutes spent with patient and additional 10 minutes spent reviewing her records
[2024-05-20 09:58] VITALS: BP 158/66; PULSE 82; O2SAT 100; BMI 26.4
== END 2024-05-20 10:29 | disposition home or self-care (01) ==
PROVIDERS: PCP Nurse Practitioner Family; Visit Provider Nurse Practitioner Family
DX: R74.01 Elevation of levels of liver transaminase levels (principal); R14.0 Abdominal distension (gaseous); K59.01 Slow transit constipation; R10.13 Epigastric pain
CPT/HCPCS: 99213

== ENCOUNTER → 2024-05-20 09:49 | Outpatient (BNVA) | payer OTHER, SELFPAY | PROVIDERS: PCP Nurse Practitioner Family; Visit Provider Nurse Practitioner Family ==

== ENCOUNTER 2024-08-18 13:51 | Outpatient (AMB) | payer OTHER, SELFPAY ==
[2024-08-18 14:20] VITALS: BP 126/80; PULSE 101; O2SAT 96; BMI 26.2
--- NOTE | 2024-08-18 14:20 | MHC.PC.OV ---
Vital Signs 08/18/24 14:20 Height 5 ft 5 in Weight 157 lb 10.088 oz BMI 26.2 BP 126/80 Blood Pressure Location Lt brachial Position Sitting Pulse 101 H Pulse Source Pulse Oximeter Pulse Oximetry (%) 96 Oxygen Delivery Method Room Air Intake Visit Reasons: Regular visit Card Reader Required: No Accompanied by: Self / Same As Patient Allergies No Known Allergies Allergy (Verified 08/19/24 13:53) Medication List - Last Reconciled 08/19/24 by Stevenson Ocasio MD blood pressure monitor As directed cholecalciferol (vitamin D3) 50 mcg PO DAILY folic acid 0.4 mg PO DAILY lisinopril 5 mg PO DAILY Tobacco use date assessed: 08/18/24 Dental Screening Dental Screen Date: 08/18/24 Did you have a dental visit in the last 12 months?: Yes Did you have a dental problem in the last 6 months where you did not have access to dental care?: No Was dental information given to patient?: Patient has dentist HPI Regular visit HPI Details 64-year-old female presents to the office to discuss her chronic medical conditions. Patient is using the lymphedema pump regularly. As a result, her swelling in the leg is much reduced. She still is unable to stand for long duration of time. After five to ten minutes of standing, she has discomfirt in the legs and has to sit down. Compliant with all medications. Still very reluctant to get routine mammogram and colonoscopy screening. [facility] Medical History Lymphedema due to lipedema Varicose veins of left lower extremity with inflammation Hypertension Surgical History History of placement of ear tubes Family History Mother Dementia Father Lung cancer Social History Housing: Condominium Alcohol intake: never Patient Tobacco Use Status: Never used Tobacco e-Cigarette/Vaping Use: Never Used Second Hand Smoke Exposure: No service: No Current occupational status: retired and disabled Cognitive needs: No Hearing needs: No Vision needs: Yes (glasses) Questionnaire PHQ-9 Over the last 2 weeks, how often have you been bothered by any of the following problems? 1. Little interest or pleasure in doing things: not at all 2. Feeling down, depressed, or hopeless: not at all 3. Trouble falling or staying asleep, or sleeping too much: not at all 4. Feeling tired or having little energy: not at all 5. Poor appetite or overeating: not at all 6. Feeling bad about yourself - or that you are a failure or have let yourself or your family down: not at all 7. Trouble concentrating on things, such as reading the newspaper or watching television: not at all 8. Moving or speaking so slowly that other people could have noticed. Or the opposite - being so fidgety or restless that you have been moving around a lot more than usual: not at all 9. Thoughts that you would be better off or of hurting yourself in some way: not at all Total score: 0 Depression Screening Interpretation: Negative Depression Screening Done: Yes Source: Developed by Drs. Jona Del Valle, Macie Frias, Christopher Harper and colleagues, with an educational phuong from [employer]. Thrive Questionnaire Date Thrive assessed: 08/18/24 I am a: Patient What is your living situation today?: I have a steady place to live Within the past 12 months, did the food you bought not last and you didn't have the money to get more?: Never true Within the past 12 months, did you worry whether your food would run out before you got money to buy more?: Never true Do you have trouble paying for medicines?: No Do you have trouble getting transportation to medical appointments?: No Do you have trouble paying your heating and electricity bill?: No Do you have trouble taking care of your child, family member or friend?: No Do you have trouble with day-to-day activities such as bathing, preparing meals, shopping, managing finances, etc.?: No Are you currently unemployed and looking for a job?: I choose not to answer this question Are you interested in more education?: No Please select the resources that you would like help with: None Currently or been in a relationship where the following occur: No concerns reported THRIVE Score: 0 AUDIT C Alcohol Use Questionnaire (AUDIT-C) 1. How often do you have a drink containing alcohol?: Never Total Score: 0 YIFAN-7 AMB Questionnaire YIFAN-7 Date YIFAN - 7 assessed: 08/18/24 Feeling nervous, anxious, or on edge: 0 = Not at all Not being able to stop or control worryin = Not at all Worrying too much about different things: 0 = Not at all Trouble relaxin = Not at all Being so restless that it is hard to sit still: 0 = Not at all Becoming easily annoyed or irritable: 0 = Not at all Feeling afraid as if something awful might happen: 0 = Not at all Total YIFAN-7 score (0-4 normal; 5-9 mild; 10-14 moderate; 15-21 severe): 0 Source: Developed by Drs. Jona Del Valle, Macie Frias, Christopher Harper and colleagues, with an educational phuong from [employer]. Physical exam (Primary Care) Vital Signs: Last Vital Signs Pulse 101 H 08/18/24 14:20 BP 126/80 08/18/24 14:20 Pulse Ox 96 08/18/24 14:20 Oxygen Delivery Method Room Air 08/18/24 14:20 Care Plan Goal for BP management: BP in range. Continue med at same dosage BMI result Body Mass Index 26.2 Tobacco/Smoking Status: Tobacco use Status Tobacco use date assessed 08/18/24 08/18/24 14:22 Patient Tobacco Use Status Never used Tobacco 08/18/24 14:22 e-Cigarette/Vaping Use Never Used 08/18/24 14:22 PHQ-9: PHQ-9 Score PHQ-9: Total score 0 08/18/24 14:22 Depression Screening Interpretation: Negative Thrive Assessment: Date of Thrive Assessment Date Thrive assessed 08/18/24 08/18/24 14:22 Currently or been in a relationship where the following occur: No concerns reported Const General: cooperative and healthy appearing Nutritional Appearance: well nourished Orientation/consciousness: patient oriented x3 Limitations: no limitations HENMT Head: Yes normal to inspection Eyes General: appearance normal, both eyes and all related structures Neck Neck: Yes normal visual inspection Chest Chest palpation & inspection: normal palpation of entire chest wall Resp Effort & Inspection: normal respiratory effort Neuro General: patient oriented x3 Extrem Other: Right and Left Lower ext: Non pitting edema, more in the calf area. Non tender Coding Level of Care Code Est Pt Level 4 (34492) Complex EM visit Add On G2211 Diagnoses Lymphedema due to lipedema I89.0; R60.9 Hypertension I10
== END 2024-08-18 16:02 | disposition home or self-care (01) ==
PROVIDERS: PCP Internal Medicine; Visit Provider Internal Medicine
DX: I89.0 Lymphedema, not elsewhere classified (principal); R60.9 Edema, unspecified; I10 Essential (primary) hypertension

== ENCOUNTER → 2024-08-18 13:51 | Outpatient (BNVA) | payer OTHER, SELFPAY | PROVIDERS: PCP Internal Medicine; Visit Provider Internal Medicine ==

== ENCOUNTER 2024-10-08 08:34 | Outpatient (AMB) | payer OTHER, SELFPAY ==
--- NOTE | 2024-10-08 08:39 | A.OFFPC_ITS ---
Vital Signs 10/08/24 08:42 Height 5 ft 5 in Weight 157 lb 6 oz BMI 26.2 BP 140/76 H Blood Pressure Location Lt brachial Position Sitting Pulse 92 Pulse Source Pulse Oximeter Pulse Oximetry (%) 97 Oxygen Delivery Method Room Air Intake Visit Reasons: 6 months f/u 09/04 Intake Note: Patient is here to follow up on HTN, Lymphedemia, Anemia Project Manager Senior Required: No Chemical Analytical Sampler: Present Accompanied by: Sister Allergies No Known Allergies Allergy (Verified 10/08/24 08:42) Tobacco use date assessed: 10/08/24 Dental Screening Dental Screen Date: 08/18/24 HPI 6 months f/u 09/04 HPI Details 64-year-old female presents to the offic e to discuss her chronic me dical conditions. She is accompanied by her sister. Since she started using the lymphedema pump, patient reports improvement in the swelling in the right and left leg. The wound clinic visits also helped and her skin is no longer oozing. She has been discharged from the Wound Clinic. Patient does not like to walk much due to the poor gait. She walks slowly. She does not venture outside the house watch. Lives at home with her mother. Able to function and do activities of daily living. [facility] Medical History Lymphedema due to lipedema Varicose veins of left lower extremity with inflammation Hypertension Surgical History History of placement of ear tubes Family History Mother Dementia Father Lung cancer Social History Housing: Condominium Alcohol intake: never Patient Tobacco Use Status: Never used Tobacco e-Cigarette/Vaping Use: Never Used Second Hand Smoke Exposure: No service: No Current occupational status: retired and disabled Cognitive needs: No Hearing needs: No Vision needs: Yes (glasses) Questionnaire Thrive Questionnaire Date Thrive assessed: 08/18/24 Are you currently unemployed and looking for a job?: I choose not to answer this question YIFAN-7 AMB Questionnaire YIFAN-7 Date YIFAN - 7 assessed: 09/30/24 Source: Developed by Drs. Jona Del Valle, Macie Frias, Christopher Harper and colleagues, with an educational phuong from [employer]. Physical exam (Primary Care) Vital Signs: Last Vital Signs Pulse 92 10/08/24 08:42 BP 140/76 H 10/08/24 08:42 Pulse Ox 97 10/08/24 08:42 Oxygen Delivery Method Room Air 10/08/24 08:42 BMI result Body Mass Index 26.2 Tobacco/Smoking Status: Tobacco use Status Tobacco use date assessed 10/08/24 10/08/24 08:48 Patient Tobacco Use Status Never used Tobacco 10/08/24 08:48 e-Cigarette/Vaping Use Never Used 10/08/24 08:48 Thrive Assessment: Date of Thrive Assessment Date Thrive assessed 08/18/24 10/08/24 08:48 Const General: cooperative and healthy appearing Nutritional Appearance: well nourished Orientation/consciousness: patient oriented x3 Limitations: no limitations HENMT Head: Yes normal to inspection Eyes General: appearance normal, both eyes and all related structures Neck Neck: Yes normal visual inspection Chest Chest palpation & inspection: normal palpation of entire chest wall Resp Effort & Inspection: normal respiratory effort Neuro General: patient oriented x3 Extrem Other: Right leg: Thickened skin and nonpitting edema over the calf and the [place]. Minimal oozing. Coding Level of Care Code Est Pt Level 4 (74766) Complex EM visit Add On G2211 Diagnoses Hypertension I10 Lymphedema due to lipedema I89.0; R60.9 Gait disorder R26.9 Hard of hearing H91.90 Atherosclerotic cardiovascular disease I25.10 Assessment & Plan Assessment & Plan (1) Hypertension: Code(s): I10 - Essential (primary) hypertension Category: Medical Plan: Lisinopril dosage increased to 10 mg a day. BW has been ordered. Will call with results. (2) Lymphedema due to lipedema: Code(s): I89.0 - Lymphedema, not elsewhere classified; R60.9 - Edema, unspecified Category: Medical Plan: Encouraged to continue using the pump as directed. For the thickened overlying skin, Cortisone cream has been ordered. (3) Gait disorder: Code(s): R26.9 - Unspecified abnormalities of gait and mobility Category: Medical Plan: Patient swings her shoulder upward while walking. Her pace is slow. This is due to the lymphedema in the feet, causing swelling and throwing her off balance. A PT consult has been requested to advise her on stretching exercises. I have encouraged the patient to walk daily and build strength in the lower ext. (4) Hard of hearing: Code(s): H91.90 - Unspecified hearing loss, unspecified ear Plan: Audiology has been scheduled. (5) Atherosclerotic cardiovascular disease: Code(s): I25.10 - Atherosclerotic heart disease of [place] coronary artery without angina pectoris Category: Medical Plan: Patient did not do the Lexiscan ordered. She claims that the insurance would not cover. Patient is very reluctant to get this procedure done. She has no follow-up appointment in this regard. Cost of medications is a barrier. Using [nsulin] many times a day without supervision. Administration of [insulin]. Orders: Orders Complete Blood Count no Diff Today I10 - Essential (primary) hypertension Lipid Panel Today I10 - Essential (primary) hypertension Liver Panel Today I10 - Essential (primary) hypertension UA and rflx microscopic Today I10 - Essential (primary) hypertension PT Evaluation and Treatment Today R26.9 - Unspecified abnormalities of gait and mobility Basic Metabolic Panel Today I10 - Essential (primary) hypertension Thyroid Stimulating Hormone Today I10 - Essential (primary) hypertension MM screening mammo BI Today Z12.31 - Encounter for screening mammogram for malignant neoplasm of breast Referrals Audiology Referral H91.90 - Unspecified hearing loss, unspecified ear Medications: New lisinopril 10 mg PO DAILY 90 tabs 1RF hydrocortisone 2.5% 1 appl topical BID PRN 453.6 grams 0RF skin irritation
[2024-10-08 08:42] VITALS: BP 140/76; PULSE 92; O2SAT 97; BMI 26.2
== END 2024-10-08 09:12 | disposition home or self-care (01) ==
PROVIDERS: PCP Internal Medicine; Visit Provider Internal Medicine
DX: I10 Essential (primary) hypertension (principal); I89.0 Lymphedema, not elsewhere classified; R60.9 Edema, unspecified; R26.9 Unspecified abnormalities of gait and mobility; H91.90 Unspecified hearing loss, unspecified ear; I25.10 Atherosclerotic heart disease of native coronary artery without angina pectoris

== ENCOUNTER 2024-11-24 09:21 | Outpatient (REF) | payer OTHER, SELFPAY ==
--- OUTSIDE RECORDS SUMMARY | 2024-11-24 09:49 | XMS_ITS ---
Author Organization [facility] Address [address] [place] [id number] Care Team Providers Care Tie Up Worker Name Role Phone Stevenson Ocasio Primary Care Provider Hanh Prieto Unavailable [phone] Franklin Guillory [phone] Encounters Encounter Location Date Provider Diagnosis [address] [address] 08/06/2024 Franklin Guillory Plan Of Treatment Next Appt Details Provider Name:Hanh aceves, 12/15/2024 09:15:00 AM, [address] [place] [address], [id number], Progress Notes * Brigida YAO EDOB:[birth year] (64 yo F)Acc No.[id number]:08/06/2024 Progress Note Patient:?Brigida YAO Provider:?Franklin Guillory DPM :1960???Age:64 Y???Sex:Female D ate:08/06/2024 Address:[address], [place] Pcp:Stevenson Ocasio Subjective: * Chief Complaints: * ??? * Medical History:? Objective: * Vitals:? Assessment: Plan: * Treatment: * Images: * The named appointment provid er may or may not be the originator of this progress note, and it is not deemed complete until electronically signed by the appointment provider. Sign off status: Pending * Provider:?Franklin Guillory DPM Date:? 024 Generated for Blake cruz/Lisa/Ирина on:?11/24/2024 09:49 AM EST
--- OUTSIDE RECORDS SUMMARY | 2024-11-24 09:49 | XMS_ITS ---
Author Organization [facility] Lisa caterina Sebastian Address [address] [facility] [place] [address] Care Team Providers Care Forklift Truck Mechanic Name Role Phone Stevenson Ocasio Primary Care Provider Hanh Prieto Unavailable [phone] Franklin Guillory Unavailable [phone] Allergies Allergen (clinical drug ingredient) Drug/Non Drug Allergy documented on EMR Reaction Allergy Type Onset Date Status ibuprofen Advil Unknown Drug Allergy Active Aleve Unknown Drug Allergy Active Motrin Unknown Drug Allergy Active REASON FOR VISIT Last PCP Visit: 03/2024, Ingrown nail(s) Medications Medication SIG (Take, Route, Frequency, Duration) Notes Start Date End Date Status D3 50 MCG (1999) TAKE 1 TABLET BY CHRISTIANO TH EVERY DAY Oral for 30 Active Ammonium Lactate 12 % External for 30 Active Eliquis DVT/PE Starter Pack 5 MG Oral for 30 Not-Taking D3 50 MCG (1999) TAKE 1 TABLET BY CHRISTIANO TH EVERY DAY Oral for 30 Days Active Folic Acid 400 MCG TAKE 1 TABLET BY CHRISTIANO TH DAILY Oral for 90 Days Active Cephalexin 500 MG Oral for 7 N ot-Taking Vitamin B-12 1000 MCG TAKE 1 TABLET BY M OUT DAILY Oral for 90 Days Active Social History Tobacco Use: Social History Observation Description Date Details (start date - stop date) Never Smoker NA - NA Tobacco Use/Smoking Question Answer Notes Are you a: nonsmoker Additional Findings: Tobacco Non-User Current no n-smoker Alcohol Screen Question Answer Notes Did you have a drink containing alcohol in the p ast year? No Points 0 Interpretation Negative Tobacco use other than smoking: Question Answer Notes Are you an other tobacco user? No Vital Signs Height 5ft 5in in 08/11/2024 Weight 150 lbs 08/11/2024 BMI 24.96 kg/m2 08/11/2024 Blood pressure systolic 130 mm Hg 08/11/20 24 Blood pressure diastolic 70 mm Hg 024 Encounters Encounter Location Date Provider Diagnosis [facility] [place] [address] [place] [address] 08/11/2024 Franklin Guillory Ingrowing nail L60.0 ; Skin disease L98.9 ; Tinea unguium B35.1 ; Xerosis cutis L85.3 ; Pain in left toe(s) M79.675 and Pain in right toe(s) M79.674 Assessments Encounter Date Diagnosis (ICD Code) Assessment Notes Treatment Notes Treatment Clinical Notes Section Notes 08/11/2024 Ingrowing nail (ICD-10 - L60.0) 08/11/2024 Skin disease (ICD-10 - L98.9) 08/11/2024 Tinea unguium (ICD-10 - B35.1) 08/11/2024 Xerosis cutis (ICD-10 - L85.3) 08/11/2024 Pain in left toe(s) (ICD-10 - M79.675) 08/11/2024 Pain in right toe(s) (ICD-10 - M79.674) Plan Of Treatment Next Appt Details Follow Up: 4 Months, Reason: Provider Name:Hanh Mendez ketan, 12/15/2024 09:15:00 AM, [address] [place] [address], [address], Procedure Notes * Category Sub-Category Detail Notes Nail Avulsion Procedure A fine sterile e levator was used to loosen the eponychium, nail bed, nail plate and groove. A sterile nail splitter was then used to longitudinally section the nail. This section was removed. No underlying bone was identified. Procedure was performed under. Bacitracin and sterile dressings applied, local wound care instructions were dispensed. Patient was informed of both conservative and future surgical procedures to prevent recurrence Anesthesia was deferred - PT AB SOLUTELY REFUSES - tolerant to pain without issue/complication Location Lateral nail border, T5 Progress Notes * Brigida YAO EDOB:[birth year] (64 yo F)Acc No.[id number]:08/11/2024 Progress Note Patient:?Brigida Yao Provider:?Franklin Guillory DPM :1960???Age:64 Y???Sex:Female D ate:08/11/2024 Address:[address] [place] [address] , [facility] Pcp:Stevenson Ocasio Subjective: * Chief Complaints: * ???Last PCP Visit: 03/2024Ing rown nail(s) * HPI: ???Skin problems:?Nature:?discolored, tender.?Location:?B/L .?Duration:?several months.? * ROS:?General/Constitutional:?Nausea?denies.?Vomiting?denies.?Hunger Thirst?denies.?Loss appetite?denies.?Chills?denies.?Fatigue?denies.?Fever?denies.?Night Sweats?denies.?Unexplained weight loss?denies.?Unexplained weight gain?denies.?HEENTM:?Dentures?denies.?Dizziness?denies.?Glasses/contacts?admits.?Retinopathy?de nies.?Blurred/double vision?denies.?TMJ?denies.?Discharge/drainage?denies.?Implants?denies.?Sore throat?denies.?Dental implants?denies.?Hard of hearing ?denies.?Difficulty chewing/swallowing/speaking?denies.?Nose bleeds?denies.?Sore mouth?denies.?Respiratory:?On Oxygen?denies.?Pneumonia/pleurisy?denies.?Bronchitis?denies.?Emphysema?denies.?C oughing?denies.?Cough blood?denies.?Shortness of breath?denies.?Wheezing?denies.?Cardiovascular:?Pacemaker?denies.?MVP?denies.?WPW?denies.?CHF?denies.?Heart attack?denies.?Septal defect?denies.?Rapid beat?denies.?Chest pain ?denies.?Atrial Fib.?denies.?Murmur/Palpitations?denies.?Gastrointestinal:?Hemorrhoids?denies.?Stomach/Abdominal pain?denies.?Dark blood stool?denies.?Irritable bowel ?denies.?Constipation?denies.?Diarrhea?denies.?Hematology:?Swelling?denies.?Clots?denies.?Varicose Veins?denies.?Bruising?denies.?Bleeding problem?denies.?Genitourinary:?Blood urine?denies.?Frequent/Painfu/urination/bladder control?denies.?Kidney stones?denies.?Infection (UTI)?denies.?Nephropathy?denies.?sex trans dis (STD)?denies.?Prostate?denies.?Musculoskeletal:?Hammertoes?denies.?Bunions?denies.?Back Pain?denies.?Muscle Cramps/ Resting?denies.?Muscle cramps / walking?denies.?Generalized aches and pains?denies.?Weakness?denies.?Integ.:?Ernst?denies.?Scars?denies.?Corns/calluses?denies.?Ingrown nails?denies.?Painful nails?denies.?Open Sores?denies.?Rashes?denies.?Neurologic:?Difficulty sleeping?denies.?Brain disorder?denies.?Numbness?denies.?Balance trouble?denies.?Confusion?denies.?Fainting/blackouts?denies.?Tingling?denies.?Tr emors?denies.? * Medical History:? * Surgical History:?ear surger y- tubes tonsillectomy colonoscopy * Hospitalization/Major Diagno stic Procedure:?Denies Past Hospitalization * Family History:?Mother: venkat busby?Father: , diagnosed with Other malignant neoplasm of unspecified site.? * Social History:?Tobacco Use:?Tobacco Use/Smoking?Are you a:?nonsmoker ?Additional Findings: Tobacco Non-User?Current non-smoker ?Tobacco use other than smoking?Are you an other tobacco user??No ???Drugs/Alcohol:?Drugs?Have you used drugs other than those for medical reasons in the past 12 months??No ?Alcohol Screen?Did you have a drink containing alcohol in the past year??No ?Points?0 ?Interpretation?Negative ???Miscellaneous:?Caffeine: yes, 1 cup. ?no Children. ?Exercise: yes, walking. ?Marital status: . ?Occupation: Retired- [employer] Piece [employer]r. * Medications:?TakingVitamin B -12 1000 MCG Tablet TAKE 1 TABLET BY MOUTH DAILY Oral D3 50 MCG (2000 UT) Tablet TAKE 1 TABLET BY MOUTH EVERY DAY Oral Folic Acid 400 MCG Tablet TAKE 1 TABLET BY MOUTH DAILY Oral D3 50 MCG (2000 UT) Tablet TAKE 1 TABLET BY MOUTH EVERY DAY Oral Ammonium Lactate 12 % Cream External Taking Vitamin B-12 1000 MCG Tablet TAKE 1 TABLET BY MOUTH DAILY Oral Taking D3 50 MCG (2000 UT) Tablet TAKE 1 TABLET BY MOUTH EVERY DAY Oral Taking Folic Acid 400 MCG Tablet TAKE 1 TABLET BY MOUTH DAILY Oral Taking D3 50 MCG (2000 UT) Tablet TAKE 1 TABLET BY MOUTH EVERY DAY Oral Taking Ammonium Lactate 12 % Cream External Not-Taking/PRNEliquis DVT/PE Starter Pack 5 MG Tablet Therapy Pack Oral Cephalexin 500 MG Capsule Oral Medication List reviewed and reconciled with the patientNot-Taking/PRN Eliquis DVT/PE Starter Pack 5 MG Tablet Therapy Pack Oral Not-Taking/PRN Cephalexin 500 MG Capsule Oral Medication List reviewed and reconciled with the patient * Allergies:?Advil: AllergyAle ve: AllergyMotrin: Allergyyes[Allergies Verified] Objective: * Vitals:?Ht: 5ft 5in, Wt:150, BMI:24.96, Shoe size: 9W, BP:130/70 mm Hg, Ht-cm: 165.1 cm, Wt-k.04 kg. * Examination: ???Dermatologic: ?SKIN FINDINGS:? Skin shows sign(s) of, dryness, scaling, in a stocking fashion, no fissure(s) present, B/L.?Ingrown Nail: ?INSPECTION:? Reveals nail incurvation, pain on palpation, groove hypertrophy, groove ischemia, Lateral nail border, T5.?General Examination: ?GENERAL APPEARANCE:?pleasant, alert, well nourished, well developed, well hydrated, with good attention to hygene/body habitus, and in no acute distress.?ORIENTED:?person,place, and time.?Neurological: ?SENSORY:?neurological exam reveals intact sensorium, pain sensation normal, vibration sensation intact, pinprick sensation is normal in the lower extremities, anesthesia, burning, tingling, B/L.?Vascular: ?DP PULSES(B):? 1/4, B/L.?PT PULSES(B):? 0/4, B/L.?EDEMA(C):? pt tx lymphedema with pump system.?Orthopedic: ?MUSCLE STRENGTH:?5/5 all groups in a symmetrical fashion , B/L.?Nails: ?NAILS are:? Elongated, overgrown, dystrophic, lytic, greater than 3mm thick, discolored and friable with crumbly malodorous subungual debris, with pain on palpation, 1-5 B/L.? Assessment: * Assessment: 1.?Ingrowing nail - L60.0 (P rimary)?2.?Skin disease - L98.9?3.?Tinea unguium - B35.1?4.?Xerosis cutis - L85.3?5.?Pain in left toe(s) - M79.675?6.?Pain in right toe(s) - M79.674? Plan: * Treatment: * Procedures:?Nail Avulsion:?Location?Lateral nail border, T5.?Anesthesia?was deferred - PT ABSOLUTELY REFUSES - tolerant to pain without issue/complication.?Procedure?A fine sterile elevator was used to loosen the eponychium, nail bed, nail plate and groove. A sterile nail splitter was then used to longitudinally section the nail. This section was removed. No underlying bone was identified. Procedure was performed under. Bacitracin and sterile dressings applied, local wound care instructions were dispensed. Patient was informed of both conservative and future surgical procedures to prevent recurrence.? * Procedure Codes:?18962 Avuls ion Plate, Modifiers: T5 * Preventive Medicine:? ??Counseling:?Discussion:?-13: Office or other outpatient visit for the evaluation and management of an established patient, which required a medically appropriate history and/or examination and LOW level of DECISION MAKING for: 1 STABLE ACUTE UNCOMPLICATED PROBLEM, 2 OR MORE MINOR PROBLEMS, OR 1 STABLE CHRONIC PROBLEM, THAT POSE(S) A LOW RISK FOR MORBIDITY/MORTALITY. The visit on the day of the encounter encompassed interpreting the data and educating the patient as to the nature of their condition, treatment options available according to their individual PMH, meds, allergies, and overall health/living conditions, as well as any potential risks or complications that may occur from a failure to adhere to, and participate in, the recommended course of therapy. The discussion included a complete verbal, and/or written explanation of the examination results, any x-rays taken, the proposed diagnosis, and outline of the treatment plan. A schedule for future care needs was also explained. The patient verbalized an understanding of the instructions at this time and agreed to be an active participant in their treatment. If the patient should think of any questions or concerns after the visit, I have encouraged the patient to call the office--pt to continue with toical vicks qd hs ta nail bed.?Fungal Nail Counseling:?The patient was counseled on the diagnosis, potential etiologies (including, but not limited to, environmental factors, genetic, immune deficiency), and the multiple treatment options for Onychomycosis. We discussed the risks and benefits of each option from performing no treatment, to ultraviolet light shoe treatment, to laser nail treatment, to applying topical antifungals, to taking oral antifungal medication, to surgical removal of the involved nail(s) with or without performing a matricectomy, or any combination thereof. We discussed the advantages and disadvantages of each of possible treatment and importance for adherence to all the recommended therapies for optimum success. This includes the necessity for weekly emery board self nail home debridements, and control the nail and skin environment as much as possible by only using a fresh, dry pair of shoes/socks each day, as well as keeping the skin as dry as possible through the use of sprays/powders if necessary. The patient was instructed to discard the emery board after use to prevent reinfection of the involved nail(s). We discussed the mycological and visual clinical effectiveness of topical vs oral antifungal treatments as well as each ones potential side effects and/or any patient- specific medication interactions. We discussed the reasons behind the important requirement of regular liver function testing with oral antifungal therapy for safety. Patient questions regarding use, dosage, successful outcomes, blood tests, and possible pharmaceutical interactions were reviewed and the patient verbalized that all answers were clearly understood, The Pt prefers topical treatment--vicks qd hs.? * Follow Up:?4 Months * Images: * Sign off status: Completed true * Provider:?Franklin Guillory DPM Date:? 024 Generated for Blake cruz/Lisa/Ирина on:?11/24/2024 09:48 AM EST History and Physical Notes * HPI (History of Present Illness) Category Sub-Category Detail Notes Category Not es Skin problems Nature: discolored, tender Location: B/L Duration: several months Examination Category Sub-Category Detail Notes Category Not es Ingrown Nail INSPECTION: Reveals nail inc urvation, pain on palpation, groove hypertrophy, groove ischemia, Lateral nail border, T5 Neurological SENSORY: neurological exa m reveals intact sensorium, pain sensation normal, vibration sensation intact, pinprick sensation is normal in the lower extremities, anesthesia, burning, tingling, B/L Dermatologic SKIN FINDINGS: Skin shows sign( s) of, dryness, scaling, in a stocking fashion, no fissure(s) present, B/L Orthopedic MUSCLE STRENGTH: 5/5 all groups in a symmetrical fashion , B/L General Examination GENERAL APPEARANCE: pleasant , alert, well nourished, well developed, well hydrated, with good attention to hygene/body habitus, and in no acute distress ORIENTED: person,place, and ti me Vascular DP PULSES (B): 1/4, B/L PT PULSES (B): 0/4, B/L EDEMA (C): pt tx lymphedema wit h pump system Nails NAILS are: Elongated, overg rown, dystrophic, lytic, greater than 3mm thick, discolored and friable with crumbly malodorous subungual debris, with pain on palpation, 1-5 B/L
--- OUTSIDE RECORDS SUMMARY | 2024-11-24 09:49 | XMS_ITS | Patient Health Record ---
Author Organization [facility] Stephanieangie Cortes Address [address] [facility] [place] [address] Care Team Providers Care Automotive Parts Counter Assistant Name Role Phone Stevenson Ocasio Primary Care Provider Hanh Prieto Unavailable [phone] Franklin Guillory Unavailable [phone] Allergies Allergen (clinical drug ingredient) Drug/Non Drug Allergy documented on EMR Reaction Allergy Type Onset Date Status ibuprofen Advil Unknown Drug Allergy Active Aleve Unknown Drug Allergy Active Motrin Unknown Drug Allergy Active Reason For Referral No Information Medications Medication SIG (Take, Route, Frequency, Duration) Notes Start Date End Date Status D3 50 MCG (1999) TAKE 1 TABLET BY CHRISTIANO TH EVERY DAY Oral for 30 Active Ammonium Lactate 12 % External for 30 Active Eliquis DVT/PE Starter Pack 5 MG Oral for 30 Not-Taking Cephalexin 500 MG Oral for 7 N ot-Taking Vitamin B-12 1000 MCG TAKE 1 TABLET BY M OUTH DAILY Oral for 90 Days Active D3 50 MCG (1999) TAKE 1 TABLET BY CHRISTIANO TH EVERY DAY Oral for 30 Days Active Folic Acid 400 MCG TAKE 1 TABLET BY CHRISTIANO TH DAILY Oral for 90 Days Active Social [...] an other tobacco user? No Vital Signs Blood pressure diastolic 70 mm Hg 08/11/2024 Height 5ft 5in in 08/11/2024 Blood pressure systolic 130 mm Hg 08/11/2024 Weight 150 lbs 08/11/2024 BMI 24.96 kg/m2 08/11/2024 Procedures Procedure Date Ordered Date Performed Result Body Sit e 49072-TFXIWNTY OF HEMATOMA/FLUID 12/05/2023 N/A Encounters Encounter Location Date Provider Diagnosis [address] [address] 12/05/2023 Franklin Guillory Ingrowing nail L60.0 ; Skin disease L98.9 ; Tinea unguium B35.1 ; Xerosis cutis L85.3 and Subungual hematoma of toenail of right foot, initial encounter S90.221A [address] [address] 04/02/2024 Franklin Guillory Ingrowing nail L60.0 ; Skin disease L98.9 ; Tinea unguium B35.1 ; Xerosis cutis L85.3 ; Pain in left toe(s) M79.675 and Pain in right toe(s) M79.[address] [address] 08/11/2024 Franklin Guillory Ingrowing nail L60.0 ; Skin disease L98.9 ; Tinea unguium B35.1 ; Xerosis cutis L85.3 ; Pain in left toe(s) M79.675 and Pain in right toe(s) M79.[address] [address] 04/08/2024 Franklin Guillory [address] [address] 04/08/2024 Franklin Guillory Assessments Encounter Date Diagnosis (ICD Code) Assessment Notes Treatment Notes Treatment Clinical Notes Section Notes 12/05/2023 Ingrowing nail (ICD-10 - L60.0) 12/05/2023 Skin disease (ICD-10 - L98.9) 08/11/2024 Ingrowing nail (ICD-10 - L60.0) 08/11/2024 Skin disease (ICD-10 - L98.9) 04/02/2024 Ingrowing nail (ICD-10 - L60.0) 04/02/2024 Skin disease (ICD-10 - L98.9) 04/02/2024 Tinea unguium (ICD-10 - B35.1) 08/11/2024 Tinea unguium (ICD-10 - B35.1) 12/05/2023 Tinea unguium (ICD-10 - B35.1) 04/02/2024 Xerosis cutis (ICD-10 - L85.3) 08/11/2024 Xerosis cutis (ICD-10 - L85.3) 12/05/2023 Xerosis cutis (ICD-10 - L85.3) 08/11/2024 Pain in left toe(s) (ICD-10 - M79.675) 12/05/2023 Subungual hematoma of toenail of right foot, initial encounter (ICD-10 - S90.221A) 04/02/2024 Pain in left toe(s) (ICD-10 - M79.675) 04/02/2024 Pain in right toe(s) (ICD-10 - M79.674) 08/11/2024 Pain in right toe(s) (ICD-10 - M79.674) Plan Of Treatment Pending Test Test Name Order Date 87235-Itcfcoob Plate Each Additional 48371-CHFSOZAM OF HEMATOMA/FLUID 024 Next Appt Details Provider Name:Hanh Mendez ketan, 12/15/2024 09:15:00 AM, [address] [place], [address], Insurance Providers Payer Name Payer Address Payer Phone Subscriber Number Group Number Insured Name Patient Relationship to Insured Coverage Start Date Coverage End Date [facility] [address] [place] [address] [id number] Oleksandr Yao Spouse - patient is the spouse of the insured Medical (General) History Medical History History ICD Code Diabetic High blood pressure Chicken pox Lymphedema Surgical History Surgery Date(Month/Year) ear surgery- tubes tonsillectomy colonoscopy
--- OUTSIDE RECORDS SUMMARY | 2024-11-24 09:49 | XMS_ITS ---
Author Organization [facility] Address [address] [place] [address] Care Team Providers Care Car Record Clerk Name Role Phone Stevenson Ocasio Primary Care Provider Hanh Prieto Unavailable [phone] Franklin Guillory [phone] Encounters Encounter Location Date Provider Diagnosis [address] [address] 08/04/2024 Franklin Guillory Plan Of Treatment Next Appt Details Provider Name:Hanh aceves, 12/15/2024 09:15:00 AM, [address] [place] [address], [address], Progress Notes * Brigida YAO EDOB:[birth year] (64 yo F)Acc No.[id number]:08/04/2024 Progress Note Patient:?Brigida YAO Provider:?Franklin Guillory DPM :1960???Age:64 Y???Sex:Female D ate:08/04/2024 Address:[address], [place] Pcp:Stevenson Ocasio Subjective: * Chief Complaints: * [...]
== END 2024-11-24 09:22 | disposition home or self-care (01) ==
LOC: HO.SH 09:21
PROVIDERS: Visit Provider Internal Medicine
DX: H91.90 Unspecified hearing loss, unspecified ear (principal)
CPT/HCPCS: 92557; 92567

== ENCOUNTER 2024-11-27 08:48 | Outpatient (REF) | payer OTHER, SELFPAY ==
--- OUTSIDE RECORDS SUMMARY | 2024-11-27 09:04 | XMS_ITS | Patient Health Record ---
Author Organization [facility] Stephanieangie Cortes Address [address] [facility] [place] [address] Care Team Providers Care Supervisor [employer] Name Role Phone Stevenson Ocasio Primary Care Provider Hanh Prieto Unavailable [phone] Franklin Guillory Unavailable [phone] Allergies Allergen (clinical drug ingredient) Drug/Non Drug [...] Ordered Date Performed Result Body Sit e 05369-ALBPWPHW OF HEMATOMA/FLUID 12/05/2023 N/A Encounters Encounter Location Date Provider Diagnosis [address] [address] 12/05/2023 Franklin Guillory Ingrowing nail L60.0 ; Skin disease L98.9 ; Tinea unguium B35.1 ; Xerosis cutis L85.3 and Subungual hematoma of toenail of right foot, initial encounter S90.221A [address] [address] 04/02/2024 Franklin Guillory Ingrowing nail L60.0 ; Skin disease L98.9 ; Tinea unguium B35.1 ; Xerosis cutis L85.3 ; Pain in left toe(s) M79.675 and Pain in right toe(s) M79.[address] [address] 08/11/2024 Franklin Guillory Ingrowing nail L60.0 ; Skin disease L98.9 ; Tinea unguium B35.1 ; Xerosis cutis L85.3 ; Pain in left toe(s) M79.675 and Pain in right toe(s) M79.[address] [address] 04/08/2024 Franklin Guillory [address] [address] 04/08/2024 Franklin Guillory Assessments Encounter Date Diagnosis (ICD Code) Assessment Notes Treatment Notes Treatment Clinical Notes Section Notes 12/05/2023 Ingrowing nail (ICD-10 - L60.0) 12/05/2023 Skin disease (ICD-10 - L98.9) 04/02/2024 Ingrowing nail (ICD-10 - L60.0) 04/02/2024 Skin disease (ICD-10 - L98.9) 08/11/2024 Ingrowing nail (ICD-10 - L60.0) 08/11/2024 Skin disease (ICD-10 - L98.9) 08/11/2024 Tinea unguium (ICD-10 - B35.1) 04/02/2024 Tinea unguium (ICD-10 - B35.1) 12/05/2023 Tinea unguium (ICD-10 - B35.1) 08/11/2024 Xerosis cutis (ICD-10 - L85.3) 04/02/2024 Xerosis cutis (ICD-10 - L85.3) 12/05/2023 Xerosis cutis (ICD-10 - L85.3) 04/02/2024 Pain in left toe(s) (ICD-10 - M79.675) 12/05/2023 Subungual hematoma of toenail of right foot, initial encounter (ICD-10 - S90.221A) 08/11/2024 Pain in left toe(s) (ICD-10 - M79.675) 08/11/2024 Pain in right toe(s) (ICD-10 - M79.674) 04/02/2024 Pain in right toe(s) (ICD-10 - M79.674) Plan Of Treatment Pending Test Test Name Order Date 84063-Dqmooono Plate Each Additional [id number]-GKDLEFNS OF HEMATOMA/FLUID 024 Next Appt Details Provider Name:Hanh Mendez ketan, 12/15/2024 09:15:00 AM, [address] [place], [address], Insurance Providers Payer Name Payer Address Payer Phone Subscriber Number Group Number Insured Name Patient Relationship to Insured Coverage Start Date Coverage End Date [facility] [address] [place] [address] [phone] [id number] Oleksandr Yao Spouse - patient is the spouse of the insured Medical (General) History Medical History History ICD Code Diabetic High blood pressure Chicken pox Lymphedema Surgical History Surgery Date(Month/Year) ear surgery- tubes tonsillectomy colonoscopy
--- OUTSIDE RECORDS SUMMARY | 2024-11-27 09:04 | XMS_ITS ---
Author Organization [facility] Lisa caterina Sebastian Address [address] [facility] [place] [address] Care Team Providers Care Buffer Inflated Pad Name Role Phone Stevenson Ocasio Primary Care Provider [phone] Hanh Prieto Unavailable [phone] Franklin Guillory Unavailable [phone] Allergies Allergen (clinical drug ingredient) Drug/Non Drug [...] 024 Encounters Encounter Location Date Provider Diagnosis [facility] [place] [address] [place] [address] 08/11/2024 Franklin Guillory Ingrowing nail L60.0 ; [...] Provider Name:Hanh Mendez ketan, 12/15/2024 09:15:00 AM, [address] [place] [address], [address], Procedure Notes * Category Sub-Category Detail Notes [...] Brigida YAO EDOB:[birth year] (64 yo F)Acc No.[id number]:08/11/2024 Progress Note Patient:?Brigida Yao Provider:?Franklin Guillory DPM :1960???Age:64 Y???Sex:Female D ate:08/11/2024 Address:[address] [place] [address] , [facility] Pcp:Stevenson Ocasio Subjective: * Chief Complaints: * [...] status: . 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 * Medications:?TakingVitamin B -12 1000 MCG Tablet [...] surgical procedures to prevent recurrence.? * Procedure Codes:?32909 Avuls ion Plate, Modifiers: T5 * Preventive [...] DPM Date:? 024 Generated for Blake cruz/Lisa/Ирина on:?11/27/2024 09:03 AM EST History and Physical Notes * [...]
--- OUTSIDE RECORDS SUMMARY | 2024-11-27 09:04 | XMS_ITS ---
Author Organization [facility] Address [address] [place] [id number] Care Team Providers Care Stiff Straw Hat Washer Name Role Phone Stevenson Ocasio Primary Care Provider Hanh Prieto Unavailable [phone] Franklin Guillory [phone] Encounters Encounter Location Date Provider Diagnosis [address] [phone] 08/04/2024 Franklin Guillory Plan Of Treatment Next Appt Details Provider Name:Hanh aceves, 12/15/2024 09:15:00 AM, [address] [place] [address], [phone], Progress Notes * Brigida YAO EDOB:[birth year] (64 yo F)Acc No.[id number]:08/04/2024 Progress Note Patient:?Brigida YAO Provider:?Franklin Guillory DPM :1960???Age:64 Y???Sex:Female D ate:08/04/2024 Address:[address], [place] Pcp:Stevenson Ocasio Subjective: * Chief Complaints: * [...]
--- OUTSIDE RECORDS SUMMARY | 2024-11-27 09:04 | XMS_ITS ---
Author Organization [facility] Address [address] [place] [phone] Care Team Providers Care Medical Reception Specialist Name Role Phone Stevenson Ocasio Primary Care Provider Hanh Prieto Unavailable [phone] Franklin Guillory [phone] Encounters Encounter Location Date Provider Diagnosis [address] [phone] 08/06/2024 Franklin Guillory Plan Of Treatment Next Appt Details Provider Name:Hanh aceves, 12/15/2024 09:15:00 AM, [address] [place] [address], [phone], Progress Notes * Brigida YAO EDOB:[birth year] (64 yo F)Acc No.[id number]:08/06/2024 Progress Note Patient:?Brigida YAO Provider:?Franklin Guillory DPM :1960???Age:64 Y???Sex:Female D ate:08/06/2024 Address:[address], [place] Pcp:Stevenson Ocasio Subjective: * Chief Complaints: * [...]
[2024-11-27 10:21] LABS: Hematocrit 39.6 % (37.0-47.0); Hemoglobin 12.5 g/dl (12.0-16.0); Mean Corpuscular HGB Conc 31.6 g/dl (31.0-35.0); Mean Corpuscular Hemoglobin 27.9 pg (27.0-33.0); Mean Corpuscular Volume 88.4 fL (80.0-98.0); Mean Platelet Volume 10.4 fL (9.4-12.3); Platelet Count 175 X10*3/uL (160-400); Red Blood Count 4.48 X10*6/uL (4.20-5.50); Red Cell Distribution Width 13.9 % (11.0-16.0); White Blood Count 4.1 X10*3/uL (4.8-10.8)
[2024-11-27 11:30] LABS: Alanine Aminotransferase 12 U/L (0-31); Albumin Level 4.1 g/dL (3.5-5.0); Anion Gap 10 (12-20); Aspartate Amino Transferase 23 U/L (5-31); Bilirubin Direct 0.2 mg/dL (0.0-0.5); Bilirubin Total 0.7 mg/dL (0.0-1.0); Blood Urea Nitrogen 13 mg/dL (9-16); Calcium 9.6 mg/dL (8.4-10.2); Carbon Dioxide 31 mmol/L (22-29); Chloride 105 mmol/L (96-108); Cholesterol 168 mg/dL (<200); Estimated Glomerular Filt Rate > 60; Glucose Random 91 mg/dL (60-115); HDL Cholesterol 46 mg/dL (>40); LDL Cholesterol Calculated 105 mg/dL (<100); Sodium 142 mmol/L (135-145); Total Protein 8.1 g/dL (6.5-8.0); Triglycerides 85 mg/dL (<150)
[2024-11-27 11:33] LABS: Thyroid Stimulating Hormone 1.54 uIU/mL (0.32-4.0)
[2024-11-27 12:27] LABS: Alkaline Phosphatase 63 U/L (39-117)
== END 2024-11-27 08:49 | disposition home or self-care (01) ==
LOC: HO.HMGCLDS 08:48
PROVIDERS: PCP Internal Medicine; Visit Provider Internal Medicine
DX: I10 Essential (primary) hypertension (principal)
CPT/HCPCS: 36415; 80048; 80061; 80076; 84443; 85027

== ENCOUNTER → 2024-12-25 09:54 | Outpatient (BNVA) | payer OTHER, SELFPAY | PROVIDERS: PCP Internal Medicine; Visit Provider Internal Medicine | DX: I10 Essential (primary) hypertension (principal); I89.0 Lymphedema, not elsewhere classified; R60.9 Edema, unspecified; L97.919 Non-pressure chronic ulcer of unspecified part of right lower leg with unspecified severity; E55.9 Vitamin D deficiency, unspecified | CPT/HCPCS: 96127 ==

== ENCOUNTER 2025-06-13 14:02 | Outpatient (AMB) | payer OTHER, SELFPAY ==
--- OUTSIDE RECORDS SUMMARY | 2025-06-13 14:04 | XMS_ITS | Clinical Summary ---
Author Organization [facility] Address [address] [place] [address] Care Team Providers Care Pest Management Supervisor Name Role Phone Unavailable Primary Care Provider Unavailabl e Social History Tobacco Use Types Packs/Day Years Used Date Smoking Tobacco: Never Assessed Comments Unknown Sex and Gender Information Value Date Recorded Sex Assigned at Not on file Legal Sex Female 9:03 PM EST Gender Identity Not on file Sexual Orientation Not on file Plan of Treatment Health Maintenance Due Date Last Done Comments Breast Cancer Screening 1962 DTaP,Tdap,and Td Vaccines (1 - Tdap) 1981 Cervical Cancer Screening: P ap Smear 1983 Pneumococcal Vaccine: 50+ Ye ars (1 of 1 - PCV) 2012 Zoster Vaccines (1 of 2) 2012 Colorectal Cancer Screening: Colonoscopy 12/14/2023 HIV Screening 12/14/2023 Hepatitis C Screening 12/14/2023 Social Influencers of Health Screening 12/14/2023 COVID-19 Vaccine (1 - 2023-2 5 season) 2024 Depression Screening 11/19/2024 Influenza Vaccine (#1) 2025 RSV Immunization Adult Patie nts (1 - 1-dose 75+ series) 2037 HIB Vaccines Aged Out No longer eligi ble based on patient's age to complete this topic HPV Vaccines Aged Out No longer eligi ble based on patient's age to complete this topic Hepatitis A Vaccines Aged Out No long er eligible based on patient's age to complete this topic Hepatitis B Vaccines Aged Out No long er eligible based on patient's age to complete this topic IPV Vaccines Aged Out No longer eligi ble based on patient's age to complete this topic MMR Vaccines Aged Out No longer eligi ble based on patient's age to complete this topic Meningococcal ACWY Vaccine Aged Out N o longer eligible based on patient's age to complete this topic Meningococcal B Vaccine Aged Out No l onger eligible based on patient's age to complete this topic RSV Immunization Patients Un gabriela 20 months Aged Out No longer eligible b ased on patient's age to complete this topic Varicella Vaccines Aged Out No longer eligible based on patient's age to complete this topic
--- NOTE | 2025-06-13 14:06 | AM.OFFWIN_ITS ---
Intake Vital Signs 3 06/13/25 14:08 Height 5 ft 5 in Weight 157 lb BMI 26.1 BP 140/72 H Blood Pressure Location Lt brachial Position Sitting Pulse 109 H Pulse Source Pulse Oximeter Temp 97.9 F Temp Source Oral Pulse Oximetry (%) 97 Oxygen Delivery Method Room Air Intake Visit Reasons: EP-Both legs swollen Patient Tobacco Use Status: Never used Tobacco Allergies No Known Allergies Allergy (Verified 06/13/25 14:13) Medication List - Last Reconciled 06/13/25 by THIERNO Puckett-BC ammonium lactate 12% 1 appl topical BID betamethasone dipropionate 0.05% 1 appl topical DAILY PRN 2 weeks blood pressure monitor As directed cholecalciferol (vitamin D3) 50 mcg PO DAILY folic acid 0.4 mg PO DAILY hydrocortisone 2.5% 1 appl topical BID PRN lisinopril 10 mg PO DAILY [walker As directed] walker (Ultra-Light Rollator misc) As directed Do you need a note to return to daycare/school/sports/work: No HPI HPI Comments 2 History of Present Illness0 Details History of Present Illness - The patient is a 65-year-old female wi th lymphedema of BLE presenting with worsening lower extremity swelling. - Increased swelling began two weeks ago after malfunction of left leg pump; new wrap now in use. Has been using as directed. - Cont w/ swelling ble; also reports Op en skin areas developing due to excessive sweating and pump use. However this is not new; she uses cerve to open skin QD but has stopped over the last week. - She is active [facility]; notes re viewed. Review of Systems - Cardiovascular: Reports swelling in lo wer extremities. - Dermatological: Reports open areas and sweating of legs. Denies worsening of red open areas compared to baseline. - Neurological: Reports mild difficulty walking due to edema. - Endocrine: Reports fluid retention, co lleague suggested diuretic use. Physical Exam BLE w/ chronic lymphedma, unable to appreciate pulses as a result; she has cellulitis; see pictures below. Discussion Notes I discussed with the patient the management of her chronic lymphedema and current swelling. I explained the situation with her replacement pump and its expected timeline for benefit, emphasizing that the fluid reduction might take time. We talked about using an antibiotic for secondary skin infection and a short course of diuretic therapy to manage other elements of the swelling, not related to the lymphedema itself. We reviewed the role of oral potassium with her diuretic. The patient was advised to contact her vascular specialist, Dr. Corea, to discuss additional options for her lymphedema management. I informed her about the potential benefits of using compression therapy consistently. Anticipatory guidance was offered regarding potential complications like skin infections, stressing the importance of follow-up care with a specialist as needed. Assessment and Plan 1. Chronic Lymphedema - Replace and use lymphedema pump consis tently. 2. Lower Extremity Swelling - Cephalexin 500 mg three times daily fo r 7 days. - Furosemide 20 mg daily. - Potassium intake advised. - Heads up request for f/u sent to [facility] - Pt should Contact Dr. Corea for further management. Patient Instructions - Use the prescribed antibiotic as direc stephanie. - Take the diuretic in the morning to pr event nighttime urination. - Improve potassium intake with nuts, po tatoes, or beans. - Follow up with your vascular specialis t. - Monitor any changes in skin condition and report significant changes or discomfort. - Use the new pump wrap consistently to reduce swelling. Consent Patient was informed and verbally consented to the use of an ambient scribe for clinic note documentation during this visit. Total time spent caring for the patient today was 30 minutes. This includes time spent before the visit reviewing the chart, time spent during the visit, and time spent after the visit on documentation, reviewing laboratory results, diagnostic imaging, medications, performing a medically necessary evaluation, counseling on diagnoses, care coordination, ordering appropriate tests, ordering appropriate medications, review of tests performed by other providers, reporting test results with the patient, communication with other healthcare providers. [facility] Medical History Gait disorder Lymphedema due to lipedema Varicose veins of left lower extremity with inflammation Hypertension Surgical History History of placement of ear tubes Family History Mother Dementia Father Lung cancer Social History Housing: Condominium Alcohol intake: never Patient Tobacco Use Status: Never used Tobacco e-Cigarette/Vaping Use: Never Used Second Hand Smoke Exposure: No service: No Current occupational status: retired and disabled Cognitive needs: No Hearing needs: No Vision needs: Yes (glasses) Physical Exam Vital Signs: Last Vital Signs Temp 97.9 F 06/13/25 14:08 Pulse 109 H 06/13/25 14:08 BP 140/72 H 06/13/25 14:08 Pulse Ox 97 06/13/25 14:08 Oxygen Delivery Method Room Air 06/13/25 14:08 BMI result Body Mass Index 26.1 Assessment & Plan Assessment & Plan (1) Lymphedema: Code(s): I89.0 - Lymphedema, not elsewhere classified (2) Bilateral cellulitis of lower leg: Code(s): L03.116 - Cellulitis of left lower limb; L03.115 - Cellulitis of right lower limb Plan . Medications: New 2 cephalexin 500 mg PO TID 21 caps 0RF 7 days furosemide (Lasix) 20 mg PO QAM 5 tabs 0RF Patient Instructions: Patient Instructions - Use the prescribed antibiotic as directed. - Take the diuretic in the morning to prevent nighttime urination. - Increase potassium intake while on lasix. - Follow up with your vascular specialist. - Monitor any changes in skin condition and report significant changes or discomfort. - Use the new pump wrap consistently to reduce swelling. Coding Level of Care Code Est Pt Level 4 (96933) Diagnoses Lymphedema I89.0 Bilateral cellulitis of lower leg L03.116; L03.115
[2025-06-13 14:08] VITALS: BP 140/72; PULSE 109; TEMP 36.6; O2SAT 97; BMI 26.1
== END 2025-06-13 14:38 | disposition home or self-care (01) ==
LOC: HO.HMCWIC 14:02
PROVIDERS: PCP Internal Medicine; Visit Provider Nurse Practitioner Family
DX: I89.0 Lymphedema, not elsewhere classified (principal); L03.116 Cellulitis of left lower limb; L03.115 Cellulitis of right lower limb

== ENCOUNTER → 2025-06-13 14:02 | Outpatient (BNVA) | payer OTHER, SELFPAY | PROVIDERS: PCP Internal Medicine; Visit Provider Nurse Practitioner Family | DX: I89.0 Lymphedema, not elsewhere classified (principal); L03.116 Cellulitis of left lower limb; L03.115 Cellulitis of right lower limb | CPT/HCPCS: 99212 ==

== ENCOUNTER 2025-09-10 08:46 | Outpatient (AMB) | payer OTHER, SELFPAY ==
--- NOTE | 2025-09-10 09:08 | A.OFFPC_ITS ---
Vital Signs 09/10/25 09:10 Height 5 ft 5 in Weight 154 lb 4 oz BMI 25.7 BP 130/64 Blood Pressure Location Lt brachial Position Sitting Pulse 87 Pulse Source Pulse Oximeter Temp 96.9 F Temp Source Temporal Artery Scan Pulse Oximetry (%) 97 Oxygen Delivery Method Room Air Intake Visit Reasons: follow up - see comments Intake Note: Patient is here to follow up on HTN, Lymphedema. Drapery And Upholstery Estimator Required: No Attendant Sales: Not Required per policy Accompanied by: Self / Same As Patient Allergies No Known Allergies Allergy (Verified 09/10/25 09:10) Tobacco use date assessed: 09/10/25 Dental Screening Dental Screen Date: 12/25/24 [facility] Medical History Gait disorder Lymphedema due to lipedema Varicose veins of left lower extremity with inflammation Hypertension Surgical History History of placement of ear tubes Family History Mother Dementia Father Lung cancer Social History Housing: Condominium Alcohol intake: never Patient Tobacco Use Status: Never used Tobacco e-Cigarette/Vaping Use: Never Used Second Hand Smoke Exposure: No service: No Current occupational status: retired and disabled Cognitive needs: No Hearing needs: No Vision needs: Yes (glasses) Questionnaire PHQ-9 Over the last 2 weeks, how often have you been bothered by any of the following problems? 1. Little interest or pleasure in doing things: not at all 2. Feeling down, depressed, or hopeless: not at all 3. Trouble falling or staying asleep, or sleeping too much: not at all 4. Feeling tired or having little energy: not at all 5. Poor appetite or overeating: not at all 6. Feeling bad about yourself - or that you are a failure or have let yourself or your family down: not at all 7. Trouble concentrating on things, such as reading the newspaper or watching television: not at all 8. Moving or speaking so slowly that other people could have noticed. Or the opposite - being so fidgety or restless that you have been moving around a lot more than usual: nearly every day 9. Thoughts that you would be better off or of hurting yourself in some way: not at all Total score: 3 Depression Screening Interpretation: Positive Depression Screening Done: Yes Source: Developed by Drs. Jona Del Valle, Macie Frias, Christopher Harper and colleagues, with an educational phuong from [employer]. Thrive Questionnaire Date Thrive assessed: 12/25/24 I am a: Patient What is your living situation today?: I have a steady place to live Within the past 12 months, did the food you bought not last and you didn't have the money to get more?: Never true Within the past 12 months, did you worry whether your food would run out before you got money to buy more?: Never true Do you have trouble paying for medicines?: No Do you have trouble getting transportation to medical appointments?: No Do you have trouble paying your heating and electricity bill?: No Do you have trouble taking care of your child, family member or friend?: No Do you have trouble with day-to-day activities such as bathing, preparing meals, shopping, managing finances, etc.?: No Are you currently unemployed and looking for a job?: No Are you interested in more education?: No Please select the resources that you would like help with: None Currently or been in a relationship where the following occur: No concerns reported THRIVE Score: 0 AUDIT C Alcohol Use Questionnaire (AUDIT-C) 1. How often do you have a drink containing alcohol?: Never Total Score: 0 YIFAN-7 AMB Questionnaire YIFAN-7 Date YIFAN - 7 assessed: 12/25/24 Feeling nervous, anxious, or on edge: 0 = Not at all Not being able to stop or control worryin = Not at all Worrying too much about different things: 0 = Not at all Trouble relaxin = Not at all Being so restless that it is hard to sit still: 0 = Not at all Becoming easily annoyed or irritable: 0 = Not at all Feeling afraid as if something awful might happen: 0 = Not at all Total YIFAN-7 score (0-4 normal; 5-9 mild; 10-14 moderate; 15-21 severe): 0 Source: Developed by Drs. Jona Del Valle, Macie Frias, Christopher Harper and colleagues, with an educational phuong from [employer]. Physical exam (Primary Care) Vital Signs: Last Vital Signs Temp 96.9 F 09/10/25 09:10 Pulse 87 09/10/25 09:10 BP 130/64 09/10/25 09:10 Pulse Ox 97 09/10/25 09:10 Oxygen Delivery Method Room Air 09/10/25 09:10 BMI result Body Mass Index 25.7 Tobacco/Smoking Status: Tobacco use Status Tobacco use date assessed 09/10/25 09/10/25 09:19 Patient Tobacco Use Status Never used Tobacco 09/10/25 09:19 e-Cigarette/Vaping Use Never Used 09/10/25 09:19 PHQ-9: PHQ-9 Score PHQ-9: Total score 3 09/10/25 09:19 Depression Screening Interpretation: Positive Thrive Assessment: Date of Thrive Assessment Date Thrive assessed 12/25/24 09/10/25 09:19 Currently or been in a relationship where the following occur: No concerns reported Coding Level of Care Code Est Pt Level 4 (31835) Complex EM visit Add On G2211 Diagnoses Lymphedema I89.0 Assessment & Plan Assessment & Plan (1) Lymphedema: Code(s): I89.0 - Lymphedema, not elsewhere classified Category: Medical Plan: History of Present Illness - The patient is a 65-year-old female presenting with lymphedema and for preventative care measures. - Lymphedema: The patient experienced increased leg swelling due to a malfunctioning pump, which has since been replaced and is now functioning properly. - Preventative care: The patient has delayed her mammogram but completed a colon cancer screening with [facility] a year ago, which was normal. - She has received recent vaccinations for influenza and COVID-19. Social History - The patient takes care of her mother during the week and spends weekends with her and grandchildren. Review of Systems - Cardiovascular: Denies chest pain or orthopnea. - Respiratory: Denies dyspnea. Physical Exam General: Cooperative and healthy appearing Nutritional Appearance: Well nourished Orientation/consciousness: Patient oriented x3 Limitations: No limitations Head: Normal to inspection General: Appearance normal, both eyes and all related structures Neck: Normal visual inspection Chest: Normal palpation of entire chest wall Respiratory: No difficulty breathing ormal respiratory effort Neurology: Patient oriented x3 Results - Tests: Colon cancer screening with [facility] was normal a year ago. Plan - Continue using the lymphedema pump and monitor for issues. - Schedule a mammogram for breast cancer screening. - Maintain regular preventative care, including vaccinations. - Return in six months for follow-up and blood work. Discussion Notes During the visit, we discussed the importance of continuing with the lymphedema pump and ensuring it functions properly. I advised scheduling a mammogram for breast cancer screening and emphasized the need for regular preventative care, including vaccinations. We agreed on a follow-up visit in six months for routine evaluation and blood work. Patient Instructions - Use the lymphedema pump as directed and report any issues. - Schedule and complete your mammogram. - Keep up with vaccinations as recommended. - Return for a follow-up visit in six months.
[2025-09-10 09:10] VITALS: BP 130/64; PULSE 87; TEMP 36.1; O2SAT 97; BMI 25.7
--- OUTSIDE RECORDS SUMMARY | 2025-09-10 09:32 | XMS_ITS | Clinical Summary ---
Author Organization [facility] ity Address [address] [place] [address] Care Team Providers Care Direct Marketing Representative Name Role Phone Unavailable Primary Care Provider [...] Last Done Comments Breast Cancer Screening 1960 Colorectal Cancer Screening: Colonoscopy 1962 DTaP,Tdap,and Td Vaccines (1 - Tdap) 1981 Cervical Cancer Screening: P ap Smear 1983 Pneumococcal Vaccine: 50+ Ye ars (1 of 1 - PCV) 2012 Zoster Vaccines (1 of 2) 2012 HIV Screening 12/14/2023 Hepatitis C Screening 12/14/2023 Social Influencers of Health Screening 12/14/2023 Depression Screening 11/19/2024 COVID-19 Vaccine (1 - 2023-2 5 season) 2025 Influenza Vaccine (#1) 2025 RSV Immunization Adult [...]
== END 2025-09-10 09:50 | disposition home or self-care (01) ==
LOC: HO.HMCH 08:47
PROVIDERS: PCP Internal Medicine; Visit Provider Internal Medicine
DX: I89.0 Lymphedema, not elsewhere classified (principal)

== ENCOUNTER → 2025-09-10 08:46 | Outpatient (BNVA) | payer OTHER, SELFPAY | PROVIDERS: PCP Internal Medicine; Visit Provider Internal Medicine | DX: I89.0 Lymphedema, not elsewhere classified (principal) | CPT/HCPCS: 99212 ==